=== PATIENT | female | born 1995 | race Caucasian/White ===

== ENCOUNTER → 2020-08-10 10:05 | Outpatient (BNVA) | payer MEDICAID, SELFPAY | PROVIDERS: PCP Student in an Organized Health Care Education/Training Program; Referring Provider Student in an Organized Health Care Education/Training Program; Visit Provider Advanced Practice Midwife | DX: Z76.89 Persons encountering health services in other specified circumstances (principal) ==

== ENCOUNTER 2020-08-11 15:27 | Outpatient (REF) | payer MEDICAID, SELFPAY ==
--- NOTE | 2020-08-11 15:58 | US_ITS ---
EXAMINATION: FIRST TRIMESTER OB ULTRASOUND CLINICAL INFORMATION: Threatened COMPARISON: Previous exams most recent 08/03/2020 TECHNIQUE: Transabdominal first trimester OB ultrasound FINDINGS: There is an intrauterine gestational sac. Sublimity-rump length measures 2.5 cm suggesting gestational age of 9 weeks 2 days with estimated date of delivery of 03/14/2021. This agrees with date from previous exam. heart rate is 160 bpm. There is a yolk sac. The maternal ovaries are not seen. There is no fluid in the pelvis. IMPRESSION: Single viable intrauterine . From today's measurements, gestational age is estimated at 9 weeks 2 days with estimated delivery of 03/14/2021.
== END 2020-08-11 15:28 | disposition home or self-care (01) ==
LOC: HO.US 15:27
PROVIDERS: PCP Student in an Organized Health Care Education/Training Program; Visit Provider Advanced Practice Midwife
DX: O20.9 Hemorrhage in early pregnancy, unspecified (principal); Z3A.00 Weeks of gestation of pregnancy not specified
CPT/HCPCS: 76801

== ENCOUNTER 2020-08-17 19:12 | Emergency (ER) | payer MEDICAID, SELFPAY ==
[2020-08-17 20:10] VITALS: BP 116/59; PULSE 73; RESP 16; TEMP 36; O2SAT 100; BMI 23.1
[2020-08-17 20:58] LABS: MANUAL DIFF FLAG NO
[2020-08-17 20:59] LABS: Basophils Percent Auto 0.4 % (0-2); Eosinophils Absolute Auto 0.1 X10*3/uL (0.0-0.4); Eosinophils Percent Auto 0.7 % (0-4); Hematocrit 36.6 % (37-47); Hemoglobin 12.8 g/dl (12.0-16.0); Imm Gran Abs Auto 0.02 X10*3/uL (0.00-0.03); Imm Gran Pct Auto 0.2 % (0.0-0.4); Lymphocytes Absolute Auto 2.2 X10*3/uL (1.2-4.9); Lymphocytes Percent Auto 21.2 % (20-40); Mean Corpuscular Hemoglobin 31.6 pg (27.0-33.0); Mean Corpuscular Volume 90.4 fL (80-98); Mean Platelet Volume 10.7 fL (9.4-12.3); Monocytes Absolute Auto 0.8 X10*3/uL (0.1-1.2); Monocytes Percent Auto 7.4 % (2-11); Neutrophils Absolute Auto 7.2 X10*3/uL (2.0-8.3); Neutrophils Percent Auto 70.1 % (45-73); Platelet Count 222 X10*3/uL (160-400); Red Blood Count 4.05 X10*6/uL (4.20-5.50); Red Cell Distribution Width 11.6 % (11.0-16.0); White Blood Count 10.2 X10*3/uL (4.8-10.8)
[2020-08-17 21:33] LABS: Alanine Aminotransferase 67 U/L (0-31); Albumin Level 4.6 g/dL (3.5-5.0); Alkaline Phosphatase 73 U/L (39-117); Anion Gap 14 (12-20); Aspartate Amino Transferase 42 U/L (5-31); Bilirubin Direct 0.8 mg/dL (0.0-0.5); Bilirubin Total 1.4 mg/dL (0.0-1.0); Blood Urea Nitrogen 8 mg/dL (9-16); Calcium 9.3 mg/dL (8.4-10.2); Carbon Dioxide 22 mmol/L (22-29); Chloride 100 mmol/L (96-108); Creatinine Clr Calc Pharmacy 110.5; Estimated Glomerular Filt Rate > 60; Glucose Random 86 mg/dL (60-115); Sodium 132 mmol/L (135-145); Total Protein 7.6 g/dL (6.5-8.0)
[2020-08-17 21:50] LABS: Lipase 93 U/L (8-78)
--- NOTE | 2020-08-17 22:28 | ED_ITS ---
HPI - Nausea/Vomiting/Diarrhea General Chief complaint: Nausea/Vomiting/Diarrhea Stated complaint: Vomiting Time Seen by Provider: 08/17/20 20:59 Source: patient Mode of arrival: ambulatory Limitations: no limitations History of Present Illness HPI Narrative: patient comes in to the emergency room complaining of vomiting. Patient is currently a at 10 weeks of gestational age by ultrasound. Patient states throughout her she has been having hyperemesis gravidarum, patient was discharged home with Zofran which is not helping her symptoms. Patient called her jr. systems administrator this morning, she was instructed to come to the emergency room for further evaluation. Patient denies any abdominal pain, no cramping, no vaginal discharge or fluid leakage. No diarrhea no fever. MD elicited complaint: nausea and vomiting Onset (ago): week(s) Associated nausea: Yes Associated abdominal pain: No Related Data Home Medications Medication Instructions Recorded Confirmed vitamin with calcium 1 tab PO DAILY 08/10/20 no.72-iron 27 mg-folic acid 1 mg tablet Previous Rx's Medication Instructions Recorded folic acid 800 mcg tablet 0.8 mg PO DAILY 30 Days #30 tab 08/10/20 ondansetron HCl 4 mg tablet 4 mg PO Q8-12H 14 Days #42 tab 08/10/20 metoclopramide HCl [Reglan] 5 mg PO DAILY PRN #14 tab 08/18/20 Allergies Allergy/AdvReac Type Severity Reaction Status Date / Time No Known Allergies Allergy Verified 08/10/20 10:17 Review of Systems Review of Systems: Constitutional : No Weight loss, No Fever, No Chills, No Night Sweats, No Fatigue, No Malaise ENT/Mouth : No Hearing loss, No Ear Pain, No Nasal Congestion, No Sinus Pain, No Hoarseness, No sore throat, No Rhinorrhea, No Swallowing Difficulty Eyes: No Eye Pain, No Swelling, No Redness, No Foreign Body, No Discharge, No Vision Changes Cardiovascular : No Chest Pain, No SOB, No Dyspnea on Exertion, No Orthopnea, No Edema, No Palpitations Respiratory : No Cough, No Sputum, No Wheezing, No Smoke Exposure, No Dyspnea Gastrointestinal : constant Nausea and vomiting, No Diarrhea, No Constipation, No abdominal Pain, No Hematochezia, No Melena Genitourinary : no irregular bleeding, No Dysuria, No Urinary Frequency, No Hematuria, No Urinary Incontinence, No Urgency, No Flank Pain, No Urinary Flow Changes, No Hesitancy Musculoskeletal : No joint pain, No Myalgias, No Joint Swelling Skin : No Skin Lesions, No rash Neuro : No Weakness, No Numbness, No Paresthesias, No Loss of Consciousness, No Dizziness, No Headache Psych : No Anxiety/Panic, No Depression, No SI/HI/AH/VH, No Social Issues, Heme/Lymph: No Bruising, No Bleeding,No Lymphadenopathy Endocrine : No Polyuria, No Polydipsia, No Temperature Intolerance Gastrointestinal: Gastrointestinal: Reports nausea PMFSH Past Medical History Surgical History Hx of wisdom tooth extraction : 1 Para: 0 Family History Family History Maternal Grandfather HTN (hypertension) CVD (cardiovascular disease) Maternal Grandmother Diabetes mellitus Social History Social History Alcohol intake: never Smoking Status: Never smoker Advance Directives: No Advance Directives Information Provided: No Gender identity: female Physical Exam Vital Signs: Vital Signs: Vital Signs Temp Pulse Resp BP Pulse Ox 08/17/20 20:10 96.8 F 73 16 116/59 L 100 Body Mass Index 23.1 Appearance: Alert. Oriented X3. No acute distress, well-appearing Eyes: Pupils equal, round and reactive to light. ENT: Pharynx normal. Neck: Normal inspection. Neck supple. No lymph nodes noted. No crepitus CVS: Normal heart rate and rhythm. Pulses normal. Normal S1 and S2 Respiratory: No respiratory distress. Breath sounds normal. No Wheezing. No rales Abdomen: Soft and nontender. No rigidity. No distention. good BS x4 Skin: Skin warm and dry. Normal skin color. Normal skin turgor. Extremities: No lower extremity edema. No lower extremity edema. No Lacerations. No Rash Neuro: Oriented X 3. No motor deficit. No sensory deficit. Moving all extermities. No slurred speech. Course Reevaluation(s) Reevaluation #1: patient feeling much better, no longer feeling nauseous or vomiting MDM - Nausea/Vomiting/Diarrhea MDM Narrative Medical decision making narrative: Patient did not want to wait for a repeat drawn for beta HCG, she did not want to wait for urine results either. Patient requesting to be discharged home. Patient states she feels much better. Since patient has not had any good results controlling the nausea and vomiting at home with Zofran, it will be changed to Phenergan which helped her here Medical Records Attestation: I reviewed the patient's medical records. Lab Data Attestation: I reviewed the patient's lab results. Result diagrams: 08/17/20 20:42 08/17/20 20:42 Labs: Lab Results 08/17/20 08/17/20 08/17/20 Range/Units 20:42 20:42 23:50 WBC 10.2 (4.8-10.8) X10*3/uL RBC 4.05 L (4.20-5.50) X10*6/uL Hgb 12.8 (12.0-16.0) g/dl Hct 36.6 L (37-47) % MCV 90.4 (80-98) fL MCH 31.6 (27.0-33.0) pg MCHC 35.0 (31.0-35.0) g/dl RDW 11.6 (11.0-16.0) % Plt Count 222 (160-400) X10*3/uL MPV 10.7 (9.4-12.3) fL Immature Gran % (Auto) 0.2 (0.0-0.4) % Neut % (Auto) 70.1 (45-73) % Lymph % (Auto) 21.2 (20-40) % [place] % (Auto) 7.4 (2-11) % Eos % (Auto) 0.7 (0-4) % Baso % (Auto) 0.4 (0-2) % Lymph # (Auto) 2.2 (1.2-4.9) X10*3/uL [place] # (Auto) 0.8 (0.1-1.2) X10*3/uL Eos # (Auto) 0.1 (0.0-0.4) X10*3/uL Baso # (Auto) 0.0 (0.0-0.2) X10*3/uL Abs Immat Gran (auto) 0.02 (0.00-0.03) X10*3/uL Absolute Neuts (auto) 7.2 (2.0-8.3) X10*3/uL Absolute Nucleated RBC 0.000 (0.0-0.012) X10*3/uL Nucleated RBC % (auto) 0.0 (0.0-0.2) /100WBC Sodium 132 L (135-145) mmol/L Potassium 4.0 (3.3-5.1) mmol/l Chloride 100 (96-108) mmol/L Carbon Dioxide 22 (22-29) mmol/L Anion Gap 14 (12-20) BUN 8 L (9-16) mg/dL Creatinine 0.66 (0.5-1.4) mg/dL Estim Creat Clear Calc 110.5 Estimated GFR > 60 Random Glucose 86 (60-115) mg/dL Calcium 9.3 (8.4-10.2) mg/dL Total Bilirubin 1.4 H (0.0-1.0) mg/dL Direct Bilirubin 0.8 H (0.0-0.5) mg/dL AST 42 H (5-31) U/L ALT 67 H (0-31) U/L Alkaline Phosphatase 73 (39-117) U/L Total Protein 7.6 (6.5-8.0) g/dL Albumin 4.6 (3.5-5.0) g/dL Lipase 93 H (8-78) U/L Urine Color DARK YELLOW Urine Appearance HAZY Urine pH 6.0 (5.0-8.0) Ur Specific [place] 1.025 (1.005-1.025) Urine Protein TRACE (NEG-TRACE) MG/DL Urine Glucose (UA) NEG (NEG) MG/DL Urine Ketones >=80 (NEG) MG/DL Urine Blood 3+ H (NEG) Urine Nitrite NEG (NEG) Ur Leukocyte Esterase 2+ H (NEG) Discharge Plan Discharge Clinical Impression: Nausea/vomiting in Patient Disposition: Home, Self-Care Instructions: Hyperemesis Gravidarum (ED) Additional Instructions: Please follow-up with your primary care physician tomorrow. If you have any worsening or new symptoms, please return to the emergency room or call 911 Prescriptions: New metoclopramide HCl [Reglan] 5 mg tablet 5 mg PO DAILY PRN (Reason: nausea and vomiting) Qty: 14 RF: 0 No Action Plus (calcium carb) 27 mg iron- 1 mg tablet 1 tab PO DAILY RF: 0 folic acid 800 mcg tablet 0.8 mg PO DAILY 30 Days Qty: 30 RF: 1 ondansetron HCl [Zofran] 4 mg tablet 4 mg PO Q8-12H 14 Days Qty: 42 RF: 0
[2020-08-17] MEDS: Metoclopramide HCl 10 MG/2 ML VIAL IVPUSH (22:57)
[2020-08-17] MEDS: 0.9 % Sodium Chloride 1,000 ML 999 ML IVCONT (22:57)
[2020-08-18 00:04] LABS: Appearance Urine HAZY; Color Urine DARK YELLOW; Glucose Urine UA NEG (NEG); Leukocyte Esterase Urine 2+ (NEG); Nitrite Urine NEG (NEG); Specific Gravity - Urine 1.025 (1.005-1.025); Urine Blood 3+ (NEG); Urine Ketones >=80 MG/DL (NEG); Urine Protein TRACE MG/DL (NEG-TRACE)
[2020-08-18 00:28] LABS: Bacteria Urine 1+ /LPF; Mucus Urine 2+ /LPF; Squamous Epithelial Cell Urine 3+ /LPF
== END 2020-08-18 00:36 | disposition home or self-care (01) ==
PROVIDERS: Emergency Provider Emergency Medicine; PCP Student in an Organized Health Care Education/Training Program
DX: O21.0 Mild hyperemesis gravidarum (principal); Z3A.10 10 weeks gestation of pregnancy
CPT/HCPCS: 36415; 80048; 80076; 81001; 83690; 84702; 85025; 87086; 96361; 96374; 99284; J2765

== ENCOUNTER 2022-12-02 20:34 | Emergency (ER) | payer MEDICAID, SELFPAY ==
--- NOTE | ~2022-12-02 | CT_ITS ---
EXAMINATION: CT ABDOMEN AND PELVIS WITH CONTRAST CLINICAL INFORMATION: Right lower quadrant pain. Question appendicitis. COMPARISON: None TECHNIQUE: Multidetector volumetric images were obtained from the superior aspect of the liver through the pubic symphysis following administration 85 mL of Omnipaque 350 intravenous contrast. Sagittal and coronal reformatted images were obtained on the technologist's workstation. Oral contrast: No This CT examination was performed using dose optimization techniques as appropriate, variously including the following: *Automated exposure control *Adjustment of mA and/or kV according to patient size (this includes techniques or standardized protocols for targeted exams where dose is matched to indication/reason for exam; i.e. extremities or head) *Use of iterative reconstruction technique DLP: 606 mGy-cm FINDINGS: LUNG BASES: The visualized lung bases are unremarkable. LIVER, GALLBLADDER, AND BILIARY TREE: The liver is normal in size, shape, and attenuation. No focal hepatic lesion or biliary ductal dilatation is present. The gallbladder is unremarkable with no evidence of radiopaque gallstones, gallbladder wall thickening, or obvious pericholecystic inflammatory changes. PANCREAS: Unremarkable. SPLEEN: Unremarkable. ADRENAL GLANDS: Unremarkable. KIDNEYS AND URETERS: Small 2-3 mm distal right ureteral stone at the level of the right UVJ or just passed and immediately adjacent to the right ureteral orifice. There is mild right hydroureteral nephrosis with mild right periureteral perinephric stranding and a minimally slightly right nephrogram. No additional radiodense urinary tract calculi. Normal left nephrogram. No left hydronephrosis. No renal lesions. No perinephric fluid collections. BLADDER: Unremarkable. GASTROINTESTINAL TRACT: No dilated bowel loops or bowel wall thickening. Normal appendix. No evidence of acute appendicitis. There is stippled appearing high-density material scattered within the lumen of the colon consistent with previously ingested high-density contents, nonspecific. No free air or ascites. ABDOMINAL WALL: No significant hernia is appreciated. LYMPH NODES: No lymphadenopathy. VASCULAR: Unremarkable. PELVIC VISCERA: Uterus is retroflexed. Gynecologic structures are unremarkable. No free pelvic fluid. OSSEOUS STRUCTURES: Unremarkable. CT/CT abdomen pelvis w IV con IMPRESSION: 1. 2-3 mm distal right ureteral stone at the level of the right UVJ or just passed and adjacent to the right ureteral orifice with mild right hydroureteronephrosis and a slightly delayed right nephrogram. 2. No additional radiodense urinary tract calculi. 3. Normal appendix. No evidence of acute appendicitis.
--- NOTE | ~2022-12-02 | US_ITS ---
EXAMINATION: US PELVIS COMPLETE CLINICAL INFORMATION: Right lower quadrant pain, question hemorrhagic cyst COMPARISON: Pelvic ultrasound 09/24/2019 TECHNIQUE: Transabdominal and endovaginal imaging was performed. FINDINGS: The uterus is of normal size and echogenicity measuring 6.8 x 3.5 x 4.4 cm. Uterus is retroverted in position. A regular homogeneous endometrium is identified measuring 1.0 cm. There is trace fluid in the endocervical canal. Both ovaries were identified with vascular flow present. The right measures 3.7 x 2.6 x 2.2 cm for a volume of 11.1 mL. The left measures 3.1 x 2.3 x 2.4 cm for a volume of 9.0 mL. Both ovaries demonstrate peripheralization of follicles with a central echogenic stroma on the left, with the right ovary measuring mildly enlarged. There is no pelvic free fluid. US/US pelvic and transvaginal IMPRESSION: Again seen are findings suggestive of polycystic ovarian syndrome. No acute finding to explain symptoms of pain. Trace fluid in the endocervical canal.
[2022-12-02 20:37] VITALS: BP 146/87; PULSE 73; RESP 18; TEMP 36.3; O2SAT 98; BMI 24.2
--- NOTE | 2022-12-02 20:40 | ED_ITS ---
HPI - General Adult General Chief complaint: Abdominal Pain <LASHA Woods - Last Filed: 12/02/22 20:41> Stated complaint: Abdominal Pain/ Leg numbness <LASHA Woods - Last Filed: 12/02/22 20:41> Time Seen by Provider: 12/02/22 20:51 <LASHA Woods - Last Filed: 12/02/22 20:41> Source: patient and family <Rob Barahona MD - Last Filed: 12/03/22 01:04> Mode of arrival: ambulatory <Rob Barahona MD - Last Filed: 12/03/22 01:04> Limitations: no limitations <Rob Barahona MD - Last Filed: 12/03/22 01:04> History of Present Illness HPI narrative: Patient with history of PCOS came here with sudden onset of pain in the right lower quadrant at 20:00 to right pain is sharp felt like she had to go to bathroom but could not no history of kidney stone reports diarrhea all week also she was taking antibiotic for sinus infection no fever no chills no urinary complaints no flank pain irregular. But she does not think she is <Rob Barahona MD - Last Filed: 12/03/22 01:04> Related Data Home medications: Home Medications Medication Instructions Recorded Confirmed vitamin with calcium 1 tab PO DAILY 08/10/20 no.72-iron 27 mg-folic acid 1 mg tablet ( Plus (calcium carbonate)) Previous Rx's Medication Instructions Recorded folic acid 800 mcg tablet 0.8 mg PO DAILY 30 days #30 tabs 08/10/20 metoclopramide HCl 5 mg tablet 5 mg PO DAILY PRN nausea and 08/18/20 (Reglan) vomiting #14 tabs ibuprofen 600 mg tablet 600 mg PO Q6H PRN fever or pain 12/03/22 #30 tabs ondansetron 4 mg disintegrating 4 mg PO Q6-8H PRN nausea and 12/03/22 tablet vomiting #10 tabs oxycodone 5 mg tablet 5 mg PO Q6H PRN pain #20 tabs 12/03/22 tamsulosin 0.4 mg capsule (Flomax) 0.4 mg PO BEDTIME #10 caps 12/03/22 <LASHA Woods - Last Filed: 12/02/22 20:41> Allergies/adverse reactions: Allergies Allergy/AdvReac Type Severity Reaction Status Date / Time No Known Allergies Allergy Verified 08/10/20 10:17 <LASHA Woods - Last Filed: 12/02/22 20:41> Review of Systems Review of Systems: Yes all other systems are reviewed and are negative <Rob Barahona MD - Last Filed: 12/03/22 01:04> [facility] Past Medical History Surgical History: Surgical History Hx of wisdom tooth extraction <LASHA Woods - Last Filed: 12/02/22 20:41> Family History Family History: Family History Maternal Grandfather HTN (hypertension) CVD (cardiovascular disease) Maternal Grandmother Diabetes mellitus <LASHA Woods - Last Filed: 12/02/22 20:41> Social History Social History: Social History Alcohol intake: never Advance Directives: No Advance Directives Information Provided: No Gender identity: Female <LASHA Woods - Last Filed: 12/02/22 20:41> Physical Exam ED Vital Signs: Vital Signs - 24 hr 12/02/22 20:37 12/02/22 21:05 12/02/22 22:17 Temperature 97.4 F Pulse Rate 73 76 79 Respiratory Rate 18 22 H 17 Blood Pressure 146/87 H 143/70 H 140/76 H Pulse Oximetry 98 94 95 Oxygen Delivery Method Room Air Room Air Room Air 12/03/22 00:38 Temperature Pulse Rate 74 Respiratory Rate 16 Blood Pressure 142/78 H Pulse Oximetry 97 Oxygen Delivery Method Room Air BMI result Body Mass Index 24.2 <LASHA Woods - Last Filed: 12/02/22 20:41> Vital Signs - 24 hr 12/02/22 20:37 12/02/22 21:05 12/02/22 22:17 Temperature 97.4 F Pulse Rate 73 76 79 Respiratory Rate 18 22 H 17 Blood Pressure 146/87 H 143/70 H 140/76 H Pulse Oximetry 98 94 95 Oxygen Delivery Method Room Air Room Air Room Air 12/03/22 00:38 Temperature Pulse Rate 74 Respiratory Rate 16 Blood Pressure 142/78 H Pulse Oximetry 97 Oxygen Delivery Method Room Air BMI result Body Mass Index 24.2 <Rob Barahona MD - Last Filed: 12/03/22 01:04> Appearance: Alert. Oriented X3. In moderate distress. Eyes: PERRLA, No Nystagmus ENT: Pharynx normal. Oral Mucosa moist Neck: Normal inspection. Neck supple. CVS: Normal heart rate and rhythm. Pulses normal. Respiratory: No respiratory distress. Equal air entry bilateral, no w heezing/rales/rhonchi Abdomen: Soft, right lower quadrant tenderness with guarding Bowel sounds are present, no mass palpable, no CVA tenderness Skin: Skin warm and dry. Normal skin color. Normal skin turgor. Extremities: No lower extremity edema. No calf tenderness Neuro: Oriented X 3. No motor deficit. <Rob Barahona MD - Last Filed: 12/03/22 01:04> Course Course Course Narrative: RME performed by Yuko Walker PA-C. Patient is a 27 year old female presenting to the emergency department with right lower quadrant abdominal pain. Labs and imaging orders placed. <LASHA Woods - Last Filed: 12/02/22 20:41> Medications Administered Discontinued Medications Generic Name Dose Route Start Last Admin Trade Name Freq PRN Reason Stop Dose Admin Sodium Chloride 1,000 mls @ 999 mls/hr 12/02/22 20:57 12/02/22 22:04 Ns IV 12/02/22 21:57 Infused .Q1H1M ONE Infusion Iohexol 100 ml 12/02/22 22:35 12/02/22 22:35 Iohexol 350 Mg/Ml 100 Ml Infus..Btl IV 12/02/22 22:36 85 ml ONCE ONE Administration Ketorolac Tromethamine 30 mg 12/02/22 20:57 12/02/22 21:00 Ketorolac Tromethamine 30 Mg/Ml Vial IVPUSH 12/02/22 20:58 30 mg ONCE ONE Administration Morphine Sulfate 2 mg 12/02/22 22:53 12/02/22 23:05 Morphine Sulfate 2 Mg/Ml Cartridge IVPUSH 12/02/22 22:54 2 mg ONCE ONE Administration Protocol Morphine Sulfate 4 mg 12/03/22 00:18 12/03/22 00:25 Morphine Sulfate 4 Mg/Ml Cartridge IVPUSH 12/03/22 00:19 4 mg ONCE ONE Administration Protocol Ondansetron HCl 4 mg 12/02/22 22:53 12/02/22 23:05 Ondansetron Hcl 4 Mg/2 Ml Vial IVPUSH 12/02/22 22:54 4 mg ONCE ONE Administration Tamsulosin HCl 0.4 mg 12/02/22 23:59 12/03/22 00:25 Tamsulosin Hcl 0.4 Mg Capsule PO 12/03/22 00:00 0.4 mg ONCE ONE Administration <LASHA Woods - Last Filed: 12/02/22 20:41> Medications Administered Discontinued Medications Generic Name Dose Route Start Last Admin Trade Name Freq PRN Reason Stop Dose Admin Sodium Chloride 1,000 mls @ 999 mls/hr 12/02/22 20:57 12/02/22 22:04 Ns IV 12/02/22 21:57 Infused .Q1H1M ONE Infusion Iohexol 100 ml 12/02/22 22:35 12/02/22 22:35 Iohexol 350 Mg/Ml 100 Ml Infus..Btl IV 12/02/22 22:36 85 ml ONCE ONE Administration Ketorolac Tromethamine 30 mg 12/02/22 20:57 12/02/22 21:00 Ketorolac Tromethamine 30 Mg/Ml Vial IVPUSH 12/02/22 20:58 30 mg ONCE ONE Administration Morphine Sulfate 2 mg 12/02/22 22:53 12/02/22 23:05 Morphine Sulfate 2 Mg/Ml Cartridge IVPUSH 12/02/22 22:54 2 mg ONCE ONE Administration Protocol Morphine Sulfate 4 mg 12/03/22 00:18 12/03/22 00:25 Morphine Sulfate 4 Mg/Ml Cartridge IVPUSH 12/03/22 00:19 4 mg ONCE ONE Administration Protocol Ondansetron HCl 4 mg 12/02/22 22:53 12/02/22 23:05 Ondansetron Hcl 4 Mg/2 Ml Vial IVPUSH 12/02/22 22:54 4 mg ONCE ONE Administration Tamsulosin HCl 0.4 mg 12/02/22 23:59 12/03/22 00:25 Tamsulosin Hcl 0.4 Mg Capsule PO 12/03/22 00:00 0.4 mg ONCE ONE Administration <Rob Barahona MD - Last Filed: 12/03/22 01:04> Medical Decision Making Medical Decision Making [facility] Narrative: Patient with acute onset of right-sided pain workup showed PCOS and 3 mm obstructive UVJ stone likely the cause for the pain. Patient has no history of kidney stone in the past patient is on Augmentin for dental infection for last 1 week urine was leuko stress positive but no bacteria patient failed pain improved after analgesics and IV fluids feeling much better now will discharge patient home on pain management advised to follow-up with urologist for further evaluation <Rob Barahona MD - Last Filed: 12/03/22 01:04> Lab Data [facility] Lab Attestation statement: I reviewed the patient's lab results. <Rob Barahona MD - Last Filed: 12/03/22 01:04> Result Diagrams: 12/02/22 20:53 12/02/22 20:53 <LASHA Woods - Last Filed: 12/02/22 20:41> Labs: Lab Results 12/02/22 12/02/22 12/02/22 Range/Units 20:53 20:53 22:44 WBC 10.7 (4.8-10.8) X10*3/uL RBC 4.57 (4.20-5.50) X10*6/uL Hgb 13.9 (12.0-16.0) g/dl Hct 40.3 (37.0-47.0) % MCV 88.2 (80.0-98.0) fL MCH 30.4 (27.0-33.0) pg MCHC 34.5 (31.0-35.0) g/dl RDW 11.9 (11.0-16.0) % Plt Count 303 (160-400) X10*3/uL MPV 9.8 (9.4-12.3) fL Immature Gran % (Auto) 0.3 (0.0-0.4) % Neut % (Auto) 50.8 (45-73) % Lymph % (Auto) 39.9 (20-40) % [place] % (Auto) 7.5 (2-11) % Eos % (Auto) 1.0 (0-4) % Baso % (Auto) 0.5 (0-2) % Lymph # (Auto) 4.3 (1.2-4.9) X10*3/uL [place] # (Auto) 0.8 (0.1-1.2) X10*3/uL Eos # (Auto) 0.1 (0.0-0.4) X10*3/uL Baso # (Auto) 0.1 (0.0-0.2) X10*3/uL Abs Immat Gran (auto) 0.03 (0.00-0.03) X10*3/uL Absolute Neuts (auto) 5.5 (2.0-8.3) x10*3/uL Absolute Nucleated RBC 0.000 (0.0-0.012) X10*3/uL Nucleated RBC % (auto) 0.0 (0.0-0.2) /100WBC Sodium 138 (135-145) mmol/L Potassium 4.0 (3.3-5.1) mmol/L Chloride 102 (96-108) mmol/L Carbon Dioxide 26 (22-29) mmol/L Anion Gap 14 (12-20) BUN 17 H (9-16) mg/dL Creatinine 1.17 (0.5-1.4) mg/dL Estim Creat Clear Calc 66.4 Estimated GFR 55 Random Glucose 98 (60-115) mg/dL Calcium 9.6 (8.4-10.2) mg/dL Magnesium 2.1 (1.6-2.6) mg/dL Total Bilirubin 0.3 (0.0-1.0) mg/dL AST 32 H (5-31) U/L ALT 45 H (0-31) U/L Alkaline Phosphatase 125 H (39-117) U/L Total Protein 8.1 H (6.5-8.0) g/dL Albumin 4.9 (3.5-5.0) g/dL Beta HCG, Quant < 2 mIU/mL Urine Color Yellow Urine Appearance Cloudy Urine pH 6.0 (5.0-9.0) Ur Specific [place] >= 1.030 H (1.005-1.025) Urine Protein Negative (Neg-Trace) mg/dL Urine Glucose (UA) Negative (Negative) mg/dL Urine Ketones Trace (Negative) mg/dL Urine Blood Small (1+) H (Negative) Urine Nitrite Negative (Negative) Ur Leukocyte Esterase Moderate (2+) H (Negative) Urine RBC 3-5 H (0-2) /HPF Urine WBC 0-5 (0-5) /HPF Ur Squamous Epith Cells 3-5 (0-2) /HPF Urine Bacteria None Seen (None Seen) Hyaline Casts 0-2 (0-2) /LPF <LASHA Woods - Last Filed: 12/02/22 20:41> Lab Results 12/02/22 12/02/22 12/02/22 Range/Units 20:53 20:53 22:44 WBC 10.7 (4.8-10.8) X10*3/uL RBC 4.57 (4.20-5.50) X10*6/uL Hgb 13.9 (12.0-16.0) g/dl Hct 40.3 (37.0-47.0) % MCV 88.2 (80.0-98.0) fL MCH 30.4 (27.0-33.0) pg MCHC 34.5 (31.0-35.0) g/dl RDW 11.9 (11.0-16.0) % Plt Count 303 (160-400) X10*3/uL MPV 9.8 (9.4-12.3) fL Immature Gran % (Auto) 0.3 (0.0-0.4) % Neut % (Auto) 50.8 (45-73) % Lymph % (Auto) 39.9 (20-40) % [place] % (Auto) 7.5 (2-11) % Eos % (Auto) 1.0 (0-4) % Baso % (Auto) 0.5 (0-2) % Lymph # (Auto) 4.3 (1.2-4.9) X10*3/uL [place] # (Auto) 0.8 (0.1-1.2) X10*3/uL Eos # (Auto) 0.1 (0.0-0.4) X10*3/uL Baso # (Auto) 0.1 (0.0-0.2) X10*3/uL Abs Immat Gran (auto) 0.03 (0.00-0.03) X10*3/uL Absolute Neuts (auto) 5.5 (2.0-8.3) x10*3/uL Absolute Nucleated RBC 0.000 (0.0-0.012) X10*3/uL Nucleated RBC % (auto) 0.0 (0.0-0.2) /100WBC Sodium 138 (135-145) mmol/L Potassium 4.0 (3.3-5.1) mmol/L Chloride 102 (96-108) mmol/L Carbon Dioxide 26 (22-29) mmol/L Anion Gap 14 (12-20) BUN 17 H (9-16) mg/dL Creatinine 1.17 (0.5-1.4) mg/dL Estim Creat Clear Calc 66.4 Estimated GFR 55 Random Glucose 98 (60-115) mg/dL Calcium 9.6 (8.4-10.2) mg/dL Magnesium 2.1 (1.6-2.6) mg/dL Total Bilirubin 0.3 (0.0-1.0) mg/dL AST 32 H (5-31) U/L ALT 45 H (0-31) U/L Alkaline Phosphatase 125 H (39-117) U/L Total Protein 8.1 H (6.5-8.0) g/dL Albumin 4.9 (3.5-5.0) g/dL Beta HCG, Quant < 2 mIU/mL Urine Color Yellow Urine Appearance Cloudy Urine pH 6.0 (5.0-9.0) Ur Specific [place] >= 1.030 H (1.005-1.025) Urine Protein Negative (Neg-Trace) mg/dL Urine Glucose (UA) Negative (Negative) mg/dL Urine Ketones Trace (Negative) mg/dL Urine Blood Small (1+) H (Negative) Urine Nitrite Negative (Negative) Ur Leukocyte Esterase Moderate (2+) H (Negative) Urine RBC 3-5 H (0-2) /HPF Urine WBC 0-5 (0-5) /HPF Ur Squamous Epith Cells 3-5 (0-2) /HPF Urine Bacteria None Seen (None Seen) Hyaline Casts 0-2 (0-2) /LPF <Rob Barahona MD - Last Filed: 12/03/22 01:04> Discharge Plan Discharge Clinical Impression: Calculus of kidney <LASHA Woods - Last Filed: 12/02/22 20:41> Patient Disposition: Home, Self-Care <LASHA Woods - Last Filed: 12/02/22 20:41> Additional Instructions: Drink plenty of fluids Pain medication as prescribed Take Flomax to keep the tube open Follow urologist Avoid food containing oxalate <LASHA Woods - Last Filed: 12/02/22 20:41> Prescriptions: New oxycodone 5 mg tablet 5 mg PO Q6H PRN (Reason: pain) Qty: 20 0RF Rx Instructions: Partial Fill upon patient request. ibuprofen 600 mg tablet 600 mg PO Q6H PRN (Reason: fever or pain) Qty: 30 0RF ondansetron 4 mg tablet,disintegrating 4 mg PO Q6-8H PRN (Reason: nausea and vomiting) Qty: 10 0RF tamsulosin [Flomax] 0.4 mg capsule 0.4 mg PO BEDTIME Qty: 10 0RF No Action metoclopramide HCl [Reglan] 5 mg tablet 5 mg PO DAILY PRN (Reason: nausea and vomiting) Qty: 14 0RF Plus (calcium carb) 27 mg iron- 1 mg tablet 1 tab PO DAILY folic acid 800 mcg tablet 0.8 mg PO DAILY 30 Days Qty: 30 1RF <LASHA Woods - Last Filed: 12/02/22 20:41> Referrals: Brennan Cobb MD [Physician] - 3 days <LASHA Woods - Last Filed: 12/02/22 20:41> Stand Alone Forms: Work/School Release <LASHA Woods - Last Filed: 12/02/22 20:41> Interventions: ED Discharge Assessment Last Done: 12/03/22 00:53 <LASHA Woods - Last Filed: 12/02/22 20:41> Discharge Date/Time: 12/03/22 00:55 <LASHA Woods - Last Filed: 12/02/22 20:41>
[2022-12-02 20:57] LABS: MANUAL DIFF FLAG NO
[2022-12-02 21:00] LABS: Basophils Absolute Auto 0.1 X10*3/uL (0.0-0.2); Basophils Percent Auto 0.5 % (0-2); Eosinophils Absolute Auto 0.1 X10*3/uL (0.0-0.4); Hematocrit 40.3 % (37.0-47.0); Hemoglobin 13.9 g/dl (12.0-16.0); Imm Gran Abs Auto 0.03 X10*3/uL (0.00-0.03); Imm Gran Pct Auto 0.3 % (0.0-0.4); Lymphocytes Absolute Auto 4.3 X10*3/uL (1.2-4.9); Lymphocytes Percent Auto 39.9 % (20-40); Mean Corpuscular HGB Conc 34.5 g/dl (31.0-35.0); Mean Corpuscular Hemoglobin 30.4 pg (27.0-33.0); Mean Corpuscular Volume 88.2 fL (80.0-98.0); Mean Platelet Volume 9.8 fL (9.4-12.3); Monocytes Absolute Auto 0.8 X10*3/uL (0.1-1.2); Monocytes Percent Auto 7.5 % (2-11); Neutrophils Absolute Auto 5.5 x10*3/uL (2.0-8.3); Neutrophils Percent Auto 50.8 % (45-73); Platelet Count 303 X10*3/uL (160-400); Red Blood Count 4.57 X10*6/uL (4.20-5.50); Red Cell Distribution Width 11.9 % (11.0-16.0); White Blood Count 10.7 X10*3/uL (4.8-10.8)
[2022-12-02] MEDS: Ketorolac Tromethamine 30 MG/ML VIAL IVPUSH (21:00)
[2022-12-02] MEDS: 0.9 % Sodium Chloride 1,000 ML 999 ML IV (21:04)
[2022-12-02 21:05] VITALS: BP 143/70; PULSE 76; RESP 22; O2SAT 94
[2022-12-02 21:26] LABS: Alanine Aminotransferase 45 U/L (0-31); Albumin Level 4.9 g/dL (3.5-5.0); Alkaline Phosphatase 125 U/L (39-117); Anion Gap 14 (12-20); Aspartate Amino Transferase 32 U/L (5-31); Bilirubin Total 0.3 mg/dL (0.0-1.0); Blood Urea Nitrogen 17 mg/dL (9-16); Calcium 9.6 mg/dL (8.4-10.2); Carbon Dioxide 26 mmol/L (22-29); Chloride 102 mmol/L (96-108); Creatinine Clr Calc Pharmacy 66.4; Estimated Glomerular Filt Rate 55; Glucose Random 98 mg/dL (60-115); Magnesium 2.1 mg/dL (1.6-2.6); Sodium 138 mmol/L (135-145); Total Protein 8.1 g/dL (6.5-8.0)
[2022-12-02 21:28] LABS: HCG Quantitative < 2 mIU/mL
[2022-12-02 22:17] VITALS: BP 140/76; PULSE 79; RESP 17; O2SAT 95
--- NOTE | 2022-12-02 22:26 | PC.NURSE ---
pt resting on stretcher at this time, reports decreased but not totally eliminated pain. Pt is in CT at this time
[2022-12-02] MEDS: iohexoL 350 MG/ML 100 ML INFUS..BTL IV (22:35)
[2022-12-02 22:49] LABS: Appearance Urine Cloudy; Color Urine Yellow; Glucose Urine UA Negative (Negative); Leukocyte Esterase Urine Moderate (2+) (Negative); Nitrite Urine Negative (Negative); Specific Gravity - Urine >= 1.030 (1.005-1.025); UMIC TRIGGER UACC YES; Urine Blood Small (1+) (Negative); Urine Ketones Trace mg/dL (Negative); Urine Protein Negative (Neg-Trace)
[2022-12-02 23:01] LABS: Bacteria Urine None Seen (None Seen); Hyaline Casts Urine 0-2 /LPF (0-2); WBC Urine 0-5 /HPF (0-5)
[2022-12-02] MEDS: ondansetron HCL 4 MG/2 ML VIAL IVPUSH (23:05)
[2022-12-02] MEDS: Morphine Sulfate 2 MG/ML CARTRIDGE IVPUSH (23:05)
[2022-12-03] MEDS: Tamsulosin HCL 0.4 MG CAPSULE PO (00:25)
[2022-12-03] MEDS: Morphine Sulfate 4 MG/ML CARTRIDGE IVPUSH (00:25)
[2022-12-03 00:38] VITALS: BP 142/78; PULSE 74; RESP 16; O2SAT 97
== END 2022-12-03 00:55 | disposition home or self-care (01) ==
PROVIDERS: Physician Assistant Medical; Emergency Provider Internal Medicine; PCP Student in an Organized Health Care Education/Training Program
DX: N13.2 Hydronephrosis with renal and ureteral calculous obstruction (principal)
CPT/HCPCS: 36415; 74177; 76830; 76856; 80053; 81001; 83735; 84702; 85025; 96361; 96374; 96375; 96376; 99284; J1885; J2270; J2405; Q9967

== ENCOUNTER → 2023-01-01 09:44 | Outpatient (BNVA) | payer MEDICAID, SELFPAY | PROVIDERS: PCP General Practice; Visit Provider Nurse Practitioner Family | DX: N20.1 Calculus of ureter (principal) | CPT/HCPCS: 99202 ==

== ENCOUNTER 2023-01-22 09:07 | Outpatient (REF) | payer MEDICAID, SELFPAY ==
--- NOTE | ~2023-01-22 | US_ITS ---
EXAMINATION: US RETROPERITONEAL LIMITED (RENAL ONLY) CLINICAL INFORMATION: Calculus of kidney. COMPARISON: CT abdomen and pelvis 12/02/2022. TECHNIQUE: Real-time imaging of the kidneys. FINDINGS: RIGHT KIDNEY: 10.5 x 3.5 x 5.0 cm (SAG x AP x TRV). The kidney is normal in size, contour, and echogenicity. Renal cortical thickness is normal. No focal parenchymal lesions or hydronephrosis. There is an echogenic stone without caliectasis in upper midpole measuring 0.2 x 0.2 x 0.2 cm. LEFT KIDNEY: 10.4 x 4.8 x 5.7 cm (SAG x AP x TRV). The kidney is normal in size, contour, and echogenicity. Renal cortical thickness is normal. No calculi or focal parenchymal lesions. No hydronephrosis. US/US renal BI IMPRESSION: 1. Nonobstructive echogenic stone upper midpole right kidney. 2. The left kidney is unremarkable.
== END 2023-01-22 09:08 | disposition home or self-care (01) ==
LOC: HO.US 09:07
PROVIDERS: PCP Student in an Organized Health Care Education/Training Program; Visit Provider Nurse Practitioner Family
DX: N20.0 Calculus of kidney (principal)
CPT/HCPCS: 76775

== ENCOUNTER → 2023-01-29 09:26 | Outpatient (BNVA) | payer MEDICAID, SELFPAY | PROVIDERS: PCP Student in an Organized Health Care Education/Training Program; Visit Provider Nurse Practitioner Family | DX: N20.0 Calculus of kidney (principal) | CPT/HCPCS: 99202 ==

== ENCOUNTER 2024-01-14 11:12 | Outpatient (REF) | payer OTHER, SELFPAY ==
[2024-01-15 05:27] LABS: ~HepC Num1 0.11 S/CO (0.00-0.79); ~Hepatitis C Antibody Nonreactive (Nonreactive)
[2024-01-16 18:14] LABS: HIV RNA PCR Qn Copies Not Detected Copies/mL; HIV RNA PCR Qn Log Copies Not Detected Log cps/mL
== END 2024-01-14 11:13 | disposition home or self-care (01) ==
LOC: HO.CHCLDS 11:12
PROVIDERS: Visit Provider Student in an Organized Health Care Education/Training Program
DX: Z00.00 Encounter for general adult medical examination without abnormal findings (principal); Z11.4 Encounter for screening for human immunodeficiency virus [HIV]
CPT/HCPCS: 36415; 86803; 87536; 87900

== ENCOUNTER 2024-01-23 08:29 | Emergency (ER) | payer OTHER, SELFPAY ==
--- NOTE | ~2024-01-23 | CT_ITS ---
EXAMINATION: CT HEAD WITHOUT CONTRAST CLINICAL INFORMATION: Numbness and tingling COMPARISON: None available. TECHNIQUE: Contiguous axial imaging was performed from the skull base to vertex without intravenous administration of contrast. This CT examination was performed using dose optimization techniques as appropriate, variously including the following: *Automated exposure control *Adjustment of mA and/or kV according to patient size (this includes techniques or standardized protocols for targeted exams where dose is matched to indication/reason for exam; i.e. extremities or head) *Use of iterative reconstruction technique DLP: 587 mGy-cm FINDINGS: There is no evidence of acute intracranial hemorrhage or territorial infarction. No abnormal mass effect or midline shift is seen. Darling to white matter differentiation is well preserved. No extra-axial fluid collections are identified. The ventricles are normal in size. There is no abnormal attenuation within the brain parenchyma. The osseous structures and soft tissues are normal. The mastoid air cells and visualized portions of the paranasal sinuses are well aerated. CT/CT head/brain wo IV con IMPRESSION: No acute intracranial pathology.
[2024-01-23 08:35] VITALS: BP 117/66; PULSE 78; RESP 18; TEMP 36.6; O2SAT 96; BMI 25.2
[2024-01-23 09:01] LABS: MANUAL DIFF FLAG NO
[2024-01-23 09:02] LABS: Basophils Absolute Auto 0.1 X10*3/uL (0.0-0.2); Basophils Percent Auto 0.5 % (0-2); Eosinophils Absolute Auto 0.3 X10*3/uL (0.0-0.4); Eosinophils Percent Auto 2.8 % (0-4); Imm Gran Abs Auto 0.03 X10*3/uL (0.00-0.03); Imm Gran Pct Auto 0.3 % (0.0-0.4); Lymphocytes Absolute Auto 4.2 X10*3/uL (1.2-4.9); Lymphocytes Percent Auto 41.1 % (20-40); Mean Corpuscular Hemoglobin 31.1 pg (27.0-33.0); Mean Corpuscular Volume 88.9 fL (80.0-98.0); Mean Platelet Volume 9.9 fL (9.4-12.3); Monocytes Absolute Auto 0.6 X10*3/uL (0.1-1.2); Monocytes Percent Auto 6.2 % (2-11); Neutrophils Absolute Auto 5.1 x10*3/uL (2.0-8.3); Neutrophils Percent Auto 49.1 % (45-73); Platelet Count 265 X10*3/uL (160-400); Red Cell Distribution Width 11.9 % (11.0-16.0); White Blood Count 10.3 X10*3/uL (4.8-10.8)
[2024-01-23 09:21] LABS: Alanine Aminotransferase 15 U/L (0-31); Albumin Level 4.5 g/dL (3.5-5.0); Alkaline Phosphatase 93 U/L (39-117); Anion Gap 10 (12-20); Aspartate Amino Transferase 17 U/L (5-31); Bilirubin Direct 0.2 mg/dL (0.0-0.5); Bilirubin Total 0.3 mg/dL (0.0-1.0); Blood Urea Nitrogen 21 mg/dL (9-16); Calcium 9.5 mg/dL (8.4-10.2); Carbon Dioxide 28 mmol/L (22-29); Chloride 104 mmol/L (96-108); Creatinine Clr Calc Pharmacy 85.9; Estimated Glomerular Filt Rate > 60; Glucose Random 98 mg/dL (60-115); Lipase 39 U/L (8-78); Potassium 3.6 mmol/L (3.3-5.1); Sodium 138 mmol/L (135-145)
[2024-01-23 10:41] LABS: HCG Quantitative < 2 mIU/mL
[2024-01-23 11:36] VITALS: BP 110/67; PULSE 71; RESP 18; TEMP 36.7; O2SAT 98
--- NOTE | 2024-01-23 11:45 | ED.GENADULT ---
HPI - General Adult General Chief complaint: General Medical Stated complaint: Sent by PCP - body tremors Time Seen by Provider: 01/23/24 13:19 Source: patient Mode of arrival: ambulatory Limitations: no limitations History of Present Illness HPI narrative: 28 yo female due to recent anxiety and depression was started on zoloft 25mg and trazodone QHS by her provider was only taking it for 3 to 4 days but felt nauseated, weird and had tremors - not external internal. She stopped taking them Sunday but still feels internal tremors. She was sent by the PCP. She is not taking the meds any longer and doesn't plan to MD complaint: internal tremors Onset (ago): day(s) (5) Location: chest, upper extremity and lower extremity Radiation: non-radiation Severity: moderate Quality: other (tremors internally ) Relieving factors: none Exacerbating factors: other (blames medications) Associated symptoms: denies other symptoms Treatments prior to arrival: none Related Data Home Medications Medication Instructions Recorded Confirmed hydroxyzine HCl 50 mg tablet 50 mg PO DAILY 12/29/22 01/29/23 meclizine 25 mg tablet 25 mg PO DAILY PRN 12/29/22 01/29/23 omeprazole 20 mg capsule,delayed 20 mg PO DAILY 12/29/22 01/29/23 release Previous Rx's Medication Instructions Recorded pyridoxine (vitamin B6) 100 mg 100 mg PO DAILY 90 days #90 tabs 01/01/23 tablet lorazepam 1 mg tablet 1 mg PO BID PRN anxiety #6 tabs 01/23/24 Allergies Allergy/AdvReac Type Severity Reaction Status Date / Time No Known Allergies Allergy Verified 01/23/24 08:35 Review of Systems Review of Systems: Constitutional : No Fever, No Chills, No Fatigue ENT/Mouth : No sore throat, No Rhinorrhea Eyes: No Eye Pain, No Swelling, No Redness Cardiovascular : No Chest Pain, No SOB, No Dyspnea on Exertion Respiratory : No Cough, No Sputum Gastrointestinal : No Nausea, No Vomiting, No Diarrhea, No abdominal Pain Genitourinary : No Dysuria, No Urinary Frequency, No Hematuria, Musculoskeletal : No joint pain, No Myalgias, No Joint Swelling Skin : No Skin Lesions, No rash Neuro : No Weakness, No Numbness, No Dizziness, no Headache Psych : No Anxiety/Panic, No Depression Heme/Lymph: No Bruising, No Bleeding,No Lymphadenopathy Endocrine : No Polyuria, No Polydipsia All other systems reviewed and are negative [facility] Past Medical History Attestation statement: The following information was validated with the patient. Source: old records reviewed Medical History Depression Surgical History Hx of wisdom tooth extraction Family History Family History Maternal Grandfather HTN (hypertension) CVD (cardiovascular disease) Maternal Grandmother Diabetes mellitus Social History Social History (Updated 01/23/24 @ 13:37 by Mavis Florentino DO) Alcohol intake: never Patient Tobacco Use Status: Never used Tobacco Advance Directives: No Advance Directives Information Provided: No Gender identity: Female Physical Exam ED Vital Signs: Vital Signs - 24 hr 01/23/24 08:35 01/23/24 11:36 01/23/24 13:38 Temperature 97.9 F 98.1 F 98.1 F Pulse Rate 78 71 72 Respiratory Rate 18 18 20 Blood Pressure 117/66 110/67 112/89 Pulse Oximetry 96 98 98 Oxygen Delivery Method Room Air Room Air Room Air BMI result Body Mass Index 25.2 Appearance: Alert. Oriented X3. No acute distress. Eyes: Pupils equal, round and reactive to light. 3mm ERRL ENT: Pharynx normal. Neck: Normal inspection. Neck supple. CVS: Normal heart rate and rhythm. Pulses normal. Respiratory: No respiratory distress. Breath sounds normal. Abdomen: Soft and nontender. Skin: Skin warm and dry. Normal skin color. Normal skin turgor. Extremities: No lower extremity edema. No calf ttp Neuro: Oriented X 3. No motor deficit. No sensory deficit. normal reflexes, no tremors noted, no clonus Course Course Course Narrative: This is an RME: Additional HPI, ROS, PE not included below will be deferred to primary provider. This is a [id number]-female presenting to the ER with c/o body tremors, muscle stiffness after starting on zoloft and trazodone. VSS, no tremor seen in triage. She is neurologically intact. Plan: Labs, ekg, further ER evaluation needed. Medical Decision Making Medical Decision Making [facility] Narrative: 28 yo female with PMH of depression just put on zoloft and trazodone only lasted 4 days but felt weird on it still has internal tremors she is not taking the medications anymore at this time will need basic labs, she has no estefani criteria doubt serotonin syndrome will start on PRN ativan for 3 days and discussed she needs to see PCP. Differential Diagnosis Differential Diagnoses: The differential diagnosis associated with the presentation includes anxiety related to medication, doubt serotonin syndrome - no signs of hyperreflexia no clonus no autonomic issues Admission/Observation Consideration of admission/observation: Escalation of care including admission/observation considered work up negative no signs of serotonin syndrome she is stable for DC Lab Data [facility] Lab Attestation statement: I reviewed the patient's lab results. 01/23/24 08:48 01/23/24 08:48 Labs: Lab Results 01/23/24 01/23/24 Range/Units 08:48 11:24 WBC 10.3 (4.8-10.8) X10*3/uL RBC 4.50 (4.20-5.50) X10*6/uL Hgb 14.0 (12.0-16.0) g/dl Hct 40.0 (37.0-47.0) % MCV 88.9 (80.0-98.0) fL MCH 31.1 (27.0-33.0) pg MCHC 35.0 (31.0-35.0) g/dl RDW 11.9 (11.0-16.0) % Plt Count 265 (160-400) X10*3/uL MPV 9.9 (9.4-12.3) fL Immature Gran % (Auto) 0.3 (0.0-0.4) % Neut % (Auto) 49.1 (45-73) % Lymph % (Auto) 41.1 H (20-40) % [place] % (Auto) 6.2 (2-11) % Eos % (Auto) 2.8 (0-4) % Baso % (Auto) 0.5 (0-2) % Lymph # (Auto) 4.2 (1.2-4.9) X10*3/uL [place] # (Auto) 0.6 (0.1-1.2) X10*3/uL Eos # (Auto) 0.3 (0.0-0.4) X10*3/uL Baso # (Auto) 0.1 (0.0-0.2) X10*3/uL Abs Immat Gran (auto) 0.03 (0.00-0.03) X10*3/uL Absolute Neuts (auto) 5.1 (2.0-8.3) x10*3/uL Absolute Nucleated RBC 0.000 (0.0-0.012) X10*3/uL Nucleated RBC % (auto) 0.0 (0.0-0.2) /100WBC Sodium 138 (135-145) mmol/L Potassium 3.6 (3.3-5.1) mmol/L Chloride 104 (96-108) mmol/L Carbon Dioxide 28 (22-29) mmol/L Anion Gap 10 L (12-20) BUN 21 H (9-16) mg/dL Creatinine 0.90 (0.5-1.4) mg/dL Estim Creat Clear Calc 85.9 Estimated GFR > 60 Random Glucose 98 (60-115) mg/dL Calcium 9.5 (8.4-10.2) mg/dL Total Bilirubin 0.3 (0.0-1.0) mg/dL Direct Bilirubin 0.2 (0.0-0.5) mg/dL AST 17 (5-31) U/L ALT 15 (0-31) U/L Alkaline Phosphatase 93 (39-117) U/L Total Protein 8.0 (6.5-8.0) g/dL Albumin 4.5 (3.5-5.0) g/dL Lipase 39 (8-78) U/L Beta HCG, Quant < 2 mIU/mL Influenza Type A (PCR) NEGATIVE (Negative) Influenza Type B (PCR) NEGATIVE (Negative) RSV RNA Qual (PCR) NEGATIVE (Negative) SARS-CoV-2 RNA (RT-PCR) NEGATIVE (Negative) Independent Interpretation I performed an independent interpretation of an: CT Scan (normal ) Radiology Impression Discussion of test interpretation with radiology: I have reviewed the radiologist's reading. External Record Review External record reviewed: Outpatient record Prescription Management I considered prescription management with: Other Discharge Plan Discharge Clinical Impression: Adverse reaction to antidepressant drug Qualifiers: Encounter type: initial encounter Qualified Code(s): T43.205A - Adverse effect of unspecified antidepressants, initial encounter Patient Disposition: Home, Self-Care Instructions: Adverse Drug Reaction (ED), Serotonin Syndrome (ED) Additional Instructions: return for worsening symptoms, concerns confusion, visible shakes, seizures or any other concerns. call your doctor for follow up appointment stop taking the zoloft and trazodone labs normal, CT scan normal tick borne panel pending Prescriptions: New lorazepam 1 mg tablet 1 mg PO BID PRN (Reason: anxiety) Qty: 6 0RF No Action omeprazole 20 mg capsule,delayed release(DR/EC) 20 mg PO DAILY meclizine 25 mg tablet 25 mg PO DAILY PRN hydroxyzine HCl 50 mg tablet 50 mg PO DAILY pyridoxine (vitamin B6) 100 mg tablet 100 mg PO DAILY 90 Days Qty: 90 1RF Stand Alone Forms: Work/School Release Interventions: ED Discharge Assessment Last Done: 01/23/24 13:38 Discharge Date/Time: 01/23/24 13:39
[2024-01-23 12:47] LABS: Influenza A PCR NEGATIVE (Negative); Influenza B PCR NEGATIVE (Negative); Resp Syncy Virus RNA Qual PCR NEGATIVE (Negative); SARS COV2 PCR INHOUSE NEGATIVE (Negative)
[2024-01-23 13:38] VITALS: BP 112/89; PULSE 72; RESP 20; TEMP 36.7; O2SAT 98
[2024-01-26 04:43] LABS: A. Phagocytphilium DNA,RT-PCR NOT DETECTED (NOT DETECTED); Babesia Microti DNA, RT-PCR NOT DETECTED (NOT DETECTED); Borrelia Miyamotoi,DNA RT-PCR NOT DETECTED (NOT DETECTED); E.Chaffeensis DNA RT-PCR NOT DETECTED (NOT DETECTED); Lyme(Borrelia ssp)DNA RT-PCR NOT DETECTED (NOT DETECTED)
== END 2024-01-23 13:39 | disposition home or self-care (01) ==
PROVIDERS: Physician Assistant Medical; Emergency Provider Emergency Medicine; PCP Student in an Organized Health Care Education/Training Program
DX: G25.1 Drug-induced tremor (principal); T43.225A Adverse effect of selective serotonin reuptake inhibitors, initial encounter; T43.215A Adverse effect of selective serotonin and norepinephrine reuptake inhibitors, initial encounter; F41.9 Anxiety disorder, unspecified; F32.A Depression, unspecified; Y92.9 Unspecified place or not applicable; Z11.52 Encounter for screening for COVID-19; Z20.828 Contact with and (suspected) exposure to other viral communicable diseases
CPT/HCPCS: 0241U; 36415; 70450; 80048; 80076; 83690; 84702; 85025; 87468; 87469; 87478; 87484; 87798; 99282; 99284

== ENCOUNTER 2024-04-11 16:14 | Outpatient (REF) | payer OTHER, SELFPAY ==
[2024-04-11 17:31] LABS: Appearance Urine Clear; Color Urine Yellow; Glucose Urine UA Negative (Negative); Leukocyte Esterase Urine Small (1+) (Negative); Nitrite Urine Negative (Negative); PH 5.5 (5.0-9.0); Specific Gravity - Urine 1.025 (1.005-1.025); UMIC TRIGGER UACC YES; Urine Blood Negative (Negative); Urine Ketones Trace mg/dL (Negative); Urine Protein Negative (Neg-Trace)
[2024-04-11 17:47] LABS: Bacteria Urine None Seen (None Seen); Hyaline Casts Urine 0-2 /LPF (0-2); UACC Culture Trigger YES
== END 2024-04-11 16:15 | disposition home or self-care (01) ==
LOC: HO.CHCLNP 16:14
PROVIDERS: Visit Provider Registered Nurse
DX: R39.9 Unspecified symptoms and signs involving the genitourinary system (principal)
CPT/HCPCS: 81001; 87086

== ENCOUNTER 2024-05-27 10:08 | Outpatient (REF) | payer OTHER, SELFPAY ==
--- NOTE | 2024-05-27 10:25 | EMG_ITS ---
Left median and ulnar motor and sensory studies were performed. Left radial sensory and median and lateral antecubital brachial sensory studies were performed and paraspinal muscles were tested with a needle. IMPRESSION: This is an unremarkable study with no significant abnormality. MD HEMA Hayward/RHIANNON / [id number]
== END 2024-05-27 10:09 | disposition home or self-care (01) ==
LOC: HO.NEURO 10:08
PROVIDERS: Absent Provider Student in an Organized Health Care Education/Training Program; PCP Student in an Organized Health Care Education/Training Program; Visit Provider Internal Medicine Geriatric Medicine
DX: M79.642 Pain in left hand (principal); R20.0 Anesthesia of skin; R29.898 Other symptoms and signs involving the musculoskeletal system
CPT/HCPCS: 95886; 95910

== ENCOUNTER 2024-06-04 11:33 | Outpatient (REF) | payer OTHER, SELFPAY ==
--- NOTE | ~2024-06-04 | US_ITS ---
EXAMINATION: US RETROPERITONEAL LIMITED (RENAL ONLY) CLINICAL INFORMATION: Calculus of kidney. COMPARISON: 01/22/2023 renal ultrasound, 11/24/2022 CT abdomen and pelvis. TECHNIQUE: Real-time imaging of the kidneys. Limited visualization due to bowel gas. FINDINGS: RIGHT KIDNEY: 10.5 x 4.1 x 5.6 cm (SAG x AP x TRV). No hydronephrosis. No renal calculi. Renal cortical thickness is normal. Limited visualization. LEFT KIDNEY: 9.7 x 4.9 x 5.4 cm (SAG x AP x TRV). No hydronephrosis. No renal calculi. Renal cortical thickness is normal. Limited visualization. US/US renal BI IMPRESSION: No hydronephrosis. No renal calculi.
== END 2024-06-04 11:34 | disposition home or self-care (01) ==
LOC: HO.US 11:33
PROVIDERS: PCP Student in an Organized Health Care Education/Training Program; Visit Provider Nurse Practitioner Family
DX: N20.0 Calculus of kidney (principal)
CPT/HCPCS: 76775

== ENCOUNTER 2024-07-30 11:48 | Outpatient (AMB) | payer OTHER, SELFPAY ==
--- NOTE | 2024-07-30 11:49 | A.OFFVIS_ITS ---
Intake Visit Reasons: US Results(set) Intake Note: Patient presents today for televisit follow up on: kidney stone and ultrasound results Urology Medications: Vitamin B6 Blood Thinner: none Board Runner Required: No Allergies No Known Allergies Allergy (Verified 07/30/24 11:56) Medication List - Last Reconciled 07/30/24 by KOKI Limon hydroxyzine HCl 50 mg PO DAILY lorazepam 1 mg PO BID PRN meclizine 25 mg PO DAILY PRN norethindrone (contraceptive) mg PO omeprazole 20 mg PO DAILY pyridoxine (vitamin B6) 100 mg PO DAILY 90 days HPI Comments Details: Alesia is a pleasant 29 year old female patient of Dr. Vernon. She has a PMH of depression and nephrolithiasis. In discussion with the patient today she reports since her last office visit here approximately 1 year ago she believes she passed a kidney stone. She currently denies any bothersome urinary issues or concerns. Recent renal imaging results reviewed with the patient today 05/28 bilateral kidneys with no hydronephrosis and or renal calculi. Limited visualization. We discussed possibility of passing stone as previous imaging noted 2 mm right renal calculi over a year ago. When asked denies urinary urgency, urinary frequency, incontinence, nocturia, hematuria, dysuria, foul smelling urine, changes to urinary stream, flank pain, fever, and or chills. She reports to be drinking plenty of water daily. She otherwise offers no other issues or concerns at this time. [facility] Medical History Depression Surgical History Hx of wisdom tooth extraction Family History Maternal Grandfather HTN (hypertension) CVD (cardiovascular disease) Maternal Grandmother Diabetes mellitus Social History (Reviewed 07/30/24 @ 11:51 by Florina Herbert Alcohol intake: never Patient Tobacco Use Status: Never used Tobacco Gender identity: Female Female Reproductive History Menstrual Age of Menarche: 8 Review of Systems Const All systems reviewed & are unremarkable except as noted in HPI and below Physical Exam Const General: cooperative, healthy appearing, comfortable, no acute distress, well developed, alert and awake Orientation/consciousness: patient oriented x3 Resp Effort & Inspection: normal respiratory effort and able to speak in complete sentences Neuro General: patient oriented x3 Psych Appearance: grossly normal and well kempt Mental Status: mental status grossly normal Speech and movement: Normal speech and movement present and Clear speech present Affect: normal affect Attitude: cooperative Thought process: Normal thought process present Thought content: Normal thought content present Insight: Good insight present (Psych) Judgement: Good judgement present (Psych) Telehealth Telehealth Telehealth Platform: Octap[employer] Location of provider rendering services: practice address Location of patient: address on file Patient Identification confirmed using: Name, : Yes Telehealth method: video Patient verbally consented to treatment: Yes Patient verbally consented to billing insurance company: Yes Patient informed of any privacy concerns related to visit: Yes Minutes spent on Phone/Video with Pt.: 15 Results Reviewed Results Reviewed: Date of Service: 06/04/24 EXAMINATION: US RETROPERITONEAL LIMITED (RENAL ONLY) FINDINGS: RIGHT KIDNEY: 10.5 x 4.1 x 5.6 cm (SAG x AP x TRV). No hydronephrosis. No renal calculi. Renal cortical thickness is normal. Limited visualization. LEFT KIDNEY: 9.7 x 4.9 x 5.4 cm (SAG x AP x TRV). No hydronephrosis. No renal calculi. Renal cortical thickness is normal. Limited visualization. IMPRESSION: No hydronephrosis. No renal calculi. Assessment & Plan Assessment & Plan (1) Calculus of kidney: Code(s): N20.0 - Calculus of kidney Category: Medical Plan Recent renal imaging results reviewed with the patient today; as noted above. She currently denies any bothersome urinary issues or concerns. Continue vitamin B6; refill provided. Discussed adding 1 oz of lemon juice to water daily. Continue drinking plenty of water daily She reports be happy with current voiding parameters. Will obtain renal ultrasound in 1 year. Follow-up 1 year with imaging to be completed prior; or sooner with any issues, concerns, or questions. Orders: Orders US renal BI 1 Year N20.0 - Calculus of kidney Medications: Refilled pyridoxine (vitamin B6) 100 mg PO DAILY 90 days 90 tabs 3RF Patient Instructions: The patient had an opportunity to ask questions regarding the treatment plan. All questions were answered. Physical exam, labs, and imaging were discussed and reviewed in detail. As well as risks, benefits, and discussion of treatment choices. No major barriers to understanding were identified. The patient expressed understanding and agreement with the above treatment plan. The patient was made aware they should contact our office by phone for worsening of their current condition, the appearance of new symptoms, or with any questions or concerns. Compliance is encouraged with any medications and follow up testing that is ordered. It is a privilege to be allowed the opportunity to participate in? your urological care.? Again, if you have any questions or concerns If you have any questions or concerns please do not hesitate to contact me. The office is [phone]. This note is constructed using voice recognition software. While every effort has been made to ensure accuracy workers compensation defense attorney errors may have been included. Yours sincerely, KOKI Limon Coding Level of Care Code Tele Est Pt Level 3 (61349) Diagnoses Calculus of kidney N20.0 Time Spent (min) 15
== END 2024-07-30 12:12 | disposition home or self-care (01) ==
LOC: HO.HUSH 11:48
PROVIDERS: PCP Student in an Organized Health Care Education/Training Program; Visit Provider Nurse Practitioner Family
DX: N20.0 Calculus of kidney (principal)
CPT/HCPCS: 99213

== ENCOUNTER → 2024-07-30 11:48 | Outpatient (BNVA) | payer OTHER, SELFPAY | PROVIDERS: PCP Student in an Organized Health Care Education/Training Program; Visit Provider Nurse Practitioner Family ==

== ENCOUNTER 2025-01-01 11:06 | Outpatient (REF) | payer OTHER, SELFPAY ==
--- OUTSIDE RECORDS SUMMARY | 2025-01-02 12:59 | XMS_ITS | Encounter Summary ---
Author Organization [employer] Address [address] [place] [address] Care Team Providers Care Automotive Artist Name Role Phone Linda Vernon MD Primary Care Provider [phone] Reason for Visit * Reason Onset Date Comments Med Refill 01/28/2024 Encounter Details Date Type Department Care Team (Late st Contact Info) Description 01/28/2024 Telephone [facility] [address] [place] [address] Linda Vernon MD [address] [place] [address] Med Refill Social History Tobacco Use Types Packs/Day Years Used Date Smoking Tobacco: Never Smokeless Tobacco: Never Alcohol Use Standard Drinks/Week Comments Never 0 (1 standard drink = 0.6 oz pur e alcohol) Depression Answer Date Recorded Patient Health Questionnaire-9 Score 26 01/14/2024 Patient Health Questionnaire-9 Score 26 01/14/2024 Last PHQ-9: Questionnaire Data Not on file 0 01/14/2024 Depression Answer Date Recorded Patient Health Questionnaire-2 Score 6 01/14/2024 Comments No Sex and Gender Information Value Date Recorded Sex Assigned at Female 09/04/2022 10:28 AM EDT Legal Sex Female 10:28 AM EDT Gender Identity Female 09/04/2022 10:28 AM EDT Sexual Orientation Choose not to disclose 2021 10:28 AM EDT documented as of this encounter Miscellaneous Notes * Telephone Encounter - Courtney Rahman RN - 01/30/2024 12:11 PM EDT TC placed to patient with message below. Patient states that these meds will help her in the short-term and she can cancel her SDC appointment today at 2:20pm and f/u with her PCP on 02/20/24. Encouraged to call us with any needs, questions, concerns before her f/u. Advised that we can get her in for SDC appointment or televisit if needed. Patient expressed understanding and agreed. Pt is having panic attacks.Ativan will help acute attacks however pt needs long standing management Cymbalta resent . Short course of Ativan sent * Telephone Encounter - Linda Vernon MD - 01/30/2024 9:15 AM EDT Pt is having panic attacks.Ativan will help acute attacks however pt needs long standing management Cymbalta resent . Short course of Ativan sent * Telephone Encounter - Courtney Rahman RN - 01/29/2024 4:43 PM EDT TC placed to patient regarding message below. Patient states that she began having whole body tremors when she was prescribed trazodone and zoloft recently. Due to these symptoms, she was advised to stop both medications, but the tremors have continued. She states that it feels like she is deeply chilled and is constantly shivering. It is making daily activities difficult. She was prescribed Cymbalta on 01/19/24 but when she last checked, the script was not ready at the pharmacy. She will check again. She states she has been off anti-depressants for about one week and her mood/energy is very low. Denies thoughts of self-harm or harming others or SI. Just feels very flat, like she doesn't care about anything. Whole body tremors are making sleep and daily activities difficult. Patient states that she was seen in [facility] ED on 01/23/24 and prescribed Ativan, which helped with the tremors. She has now run out. Patient agreeable to come to [facility] for SDC appointment tomorrow, 01/30/24. Scheduled for 2:20pm. Advised that she can also seek eval and care in [facility] this evening if needed, and if so, TXC appointment for tomorrow can be canceled. Patient expressed understanding of all, denies emergent/urgent needs/symptoms and understand to go to WIC/ED if symptoms worsen. Routing to PCP so she is aware. Tc from pt requesting Ativan, stating it was prescribed by ER for muscle tremor and she feels it has been working well for her. If any questions please contact pt at [phone]. * Telephone Encounter - Alejandro Shirley - 01/28/2024 2:08 PM EDT Tc from pt requesting Ativan, stating it was prescribed by ER for muscle tremor and she feels it has been working well for her. If any questions please contact pt at [phone]. documented in this encounter Plan of Treatment Not on file documented as of this encounter Visit Diagnoses Not on filedocumented in this encounter Additional Health Concerns Assessment Noted Time PHQ-9 Depression Total Score: 26 024 12:26 PM EDT documented as of this encounter Care Teams Automotive Artist Relationship Specialty Start Date End Date Linda Vernon MD [address] [place] [address] PCP - General Family Medicine 08/10/15 documented as of this encounter
--- OUTSIDE RECORDS SUMMARY | 2025-01-02 12:59 | XMS_ITS | Encounter Summary ---
Author Organization [employer] Address [address] [place] [address] Care Team Providers Care Acid Wash Operator Name Role Phone Linda Vernon MD Primary Care Provider [phone] Encounter Details Date Type Department Care Team (Late st Contact Info) Description 01/30/2024 Orders Only [facility] [address] [place], [place] [id number] Linda Vernon MD [address] [place], [place] [id number] Social History Tobacco Use Types Packs/Day Years [...] AM EDT documented as of this encounter Plan of Treatment Not on file documented as of this encounter Visit Diagnoses Not on filedocumented in this encounter Additional Health Concerns Assessment Noted Time PHQ-9 Depression Total Score: 26 024 12:26 PM EDT documented as of this encounter Care Teams Acid Wash Operator Relationship Specialty Start Date End Date Linda Vernon MD [address] [place] [id number] PCP - General Family Medicine 08/10/15 documented as of this encounter
--- OUTSIDE RECORDS SUMMARY | 2025-01-02 13:00 | XMS_ITS | Encounter Summary ---
Author Organization [employer] Address [address] [facility] 7t [place] [address] Care Team Providers Care Sales Floor Team Leader Name Role Phone Linda Vernon MD Primary Care Provider [phone] Reason for Visit * Reason Onset Date Comments MRI SHOULDER 12/03/2024 Encounter Details Date Type Department Care Team (Late st Contact Info) Description 12/03/2024 Telephone [facility] [address] [place], [place] [phone] Blessing Echevarria MD [address] [place], [place] [phone] MRI SHOULDER Social History Tobacco Use Types Packs/Day Years Used Date Smoking Tobacco: Never Smokeless Tobacco: Never Alcohol Use Standard Drinks/Week Comments Never 0 (1 standard drink = 0.6 oz pur e alcohol) Depression Answer Date Recorded Patient Health Questionnaire-9 Score 16 12/01/2024 Patient Health Questionnaire-9 Score 16 12/01/2024 Last PHQ-9: Questionnaire Data Not on file 0 12/01/2024 Housing Stability Answer Date Recorded What is your housing situation today? I have penny thompson 12/01/[address] you li ve. Do you have problems with any of the following? None of the above 12/01/2024 Food Insecurity Answer Date Recorded Within the past 12 months, y ou worried that your food would run out before you got money to buy more: Sometimes True 2024 Within the past 12 months,th e food you bought just didn't last and you didn't have enough money to get more: Sometimes True 12/01/2024 Transportation Answer Date Recorded In the past 12 months, has l ack of transportation kept you from medical appts, meetings, work or from getting things needed for daily living? No 12/01/2024 Utilities Answer Date Recorded In the past 12 months, has t he electric, gas, oil or water company threatened to shut off services in your home? No 12/01/2024 Depression Answer Date Recorded Patient Health Questionnaire-2 Score 3 12/01/2024 Internet Access Answer Date Recorded Internet Access Q1 Yes 12/01/2024 Internet Access Q2 Not on file 12/01/2024 Comments No Sex and Gender Information Value Date Recorded Sex Assigned at Female 09/04/2022 10:28 AM EDT Legal Sex Female 10:28 AM EDT Gender Identity Female 09/04/2022 10:28 AM EDT Sexual Orientation Choose not to disclose 2021 10:28 AM EDT documented as of this encounter Miscellaneous Notes * Telephone Encounter - Karla Oliver RN - 12/04/2024 3:16 PM EST TC to patient. Explained that physical therapy needs to be completed prior to MRI approval. Patienthad multiple question and concerns that were address. Patient agrees to do physical therapy and will call office with any questions or concerns. * Telephone Encounter - Blessing Echevarria MD - 12/03/2024 4:54 PM EST Please inform the patient that she has to go through physical therapy first prior to getting the MRI approved. * Telephone Encounter - Mikaela Mckeon - 12/03/2024 1:20 PM EST Please review evicore letter scanned in pts chart in media and advise. Thank you documented in this encounter Plan of Treatment Not on file documented as of this encounter Visit Diagnoses Not on filedocumented in this encounter Additional Health Concerns Assessment Noted Time PHQ-9 Depression Total Score: 16 025 10:05 AM EST documented as of this encounter Care Teams Sales Floor Team Leader Relationship Specialty Start Date End Date Linda Vernon MD [address] [place] [phone] PCP - General Family Medicine 08/10/15 documented as of this encounter
--- OUTSIDE RECORDS SUMMARY | 2025-01-02 13:00 | XMS_ITS | Encounter Summary ---
Author Organization [employer] Address [address] [facility] 7t [place] [address] Care Team Providers Care Supervisor Assembly Room Name Role Phone Linda Vernon MD Primary Care Provider [phone] Reason for Visit * Reason Onset Date Comments Letter for School/Work 01/18/2024 Encounter Details Date Type Department Care Team ([facility] st Contact Info) Description 01/18/2024 Telephone [facility] MED & PEDS [address] [place], [place] [phone] Linda Vernon MD [address] [place] [address] Letter for School/Work Social History Tobacco Use Types Packs/Day Years [...] encounter Miscellaneous Notes * Telephone Encounter - Roberta Houstonrero - 01/18/2024 10:18 AM EDT Tc from Kristine with [employer] requesting a call from a nurse to confirm a letter excusing the patient from work from the 05 of January until May 042023. 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 Please contact Kiesha @ [phone] documented in this encounter Plan of Treatment Not on file documented as of this encounter Visit Diagnoses Not on filedocumented in this encounter Additional Health Concerns Assessment Noted Time PHQ-9 Depression Total Score: 26 024 12:26 PM EDT documented as of this encounter Care Teams Supervisor Assembly Room Relationship Specialty Start Date End Date Linda Vernon MD [address] [place] [phone] PCP - General Family Medicine 08/10/15 documented as of this encounter
--- OUTSIDE RECORDS SUMMARY | 2025-01-02 13:00 | XMS_ITS | Encounter Summary ---
Author Organization [employer] Address [address] [facility] 7t [place] [address] Care Team Providers Care Sand Sifter Name Role Phone Linda Vernon MD Primary Care Provider [phone] Reason for Visit * Reason Onset Date Comments Med Refill 12/27/2024 Encounter Details Date Type Department Care Team (Late st Contact Info) Description 12/27/2024 Refill [facility] MED & PEDS [address] [place], [place] [phone] Linda Vernon MD [address] [place] [address] Social History Tobacco Use Types Packs/Day Years [...] documented as of this encounter Care Teams Sand Sifter Relationship Specialty Start Date End Date Linda Vernon MD [address] [place] [address] PCP - General Family Medicine 08/10/15 documented as of this encounter
--- OUTSIDE RECORDS SUMMARY | 2025-01-02 13:00 | XMS_ITS | Clinical Summary ---
Author Organization [employer] Address [address] [facility] 7t [place] [address] Care Team Providers Care Environmental Health Officer Name Role Phone Linda Vernon MD Primary Care Provider [phone] Allergies No known active allergies Medications * This document contains information received from the source organization and may not represent a complete record from that organization. omeprazole (PriLOSEC) [address] capsuleIndicati ons:GERD without esophagitis TAKE 1 CAPSULE BY MOUTH BEFORE BREAKFAST. DO NOT CRUSH, CHEW, OR SPLIT. 90 capsule 2 02/08/20 24 Active DULoxetine (Cymbalta) [address] capsuleIndicati ons:Severe episode of recurrent major depressive disorder, with psychotic features (CMS/HCC) Take 1 capsule (20 mg) by mouth Once per day. Do not crush or chew. 30 capsule 04/11/20 24 025 Active cetirizine (ZyrTEC) 10 MG tablet TAKE 1 TABLET BY MOUTH IN THE MORNING 30 tablet 5 10/15/20 24 Active omeprazole OTC (PriLOSEC OTC) 20 MG EC tabletIndicatio ns:GERD without esophagitis Take 2 tablets (40 mg) by mouth before breakfast. Do not crush, chew, or split. 90 tablet 3 12/01/19 25 Active LORazepam (Ativan) 0.5 MG tablet Take 1 tablet (0.5 mg) by mouth 2 times daily for 7 days. 14 tablet 12/30/19 25 025 Active LORazepam (Ativan) 0.5 MG tablet Take 1 tablet (0.5 mg) by mouth 2 times daily for 7 days. 14 tablet 01/30/20 24 025 Discontinued(Re order (will not trigger notification to Pharmacy)) celecoxib (CeleBREX) 200 MG capsuleIndicati ons:Chronic right shoulder pain Take 1 capsule (200 mg) by mouth 2 times daily. 60 capsule 12/01/19 25 025 Active Problems Problem Noted Date Diagnosed Date Severe episode of recurrent major depressive disorder, with psychotic features 01/14/2024 Assessment & Plan (04/13/2024 1:15 PM EDT): Pt initially tx with sertraline and trazodone, although developed tremors and went to ED with concern for serotonin syndrome Subsequently initiated on duloxetine, although experiencing urinary SE since med initiation. Per UTD, following SE listed: urinary frequency (>1%), urinary urgency (<1%), nocturia (<1%), and urinary retention in post-marketing Discussed considerations with pt, shared decision making to taper dose of cymbalta. If symptoms improve, then likely med SE, if persistent, need to investigate other causes. Deferred start of other med at this time, plan to follow up with PCP after upcoming vacation Assessment & Plan (01/14/2024 12:47 PM EDT): PROGRESS NOTE: ID: Alesia is a 28 y.o. White cis-female with MH services including OP Psychotherapy No previous hx of MH dx or sx who presents for Anxiety and Depression. Loss a child 3 years ago. Lives with partner. 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 Hx of trauma in both childhood and adulthood, Hx of thoughts, w/o plan or intent. During IBH Consult Alesia presenting with depressed mood, loss of interests/pleasure , changes in sleep difficulty falling asleep and difficulty staying asleep , change in appetite or weight ptn reported her appetite varies from poor to over eating , psychomotor agitation, trouble concentrating, fatigue/loss of energy, worthlessness , thoughts of and excessive worry/anxiety, difficulty controlling worry, restless/keyed up/On edge, easily fatigued, difficulty concentrating/Mind going blank , irritability, muscle tension, and sleep disturbance difficulty falling asleep and difficulty staying asleep ; for a period of 18+ mo, for all symptoms in the context of losing her child 3 years ago and, stress at work. PLAN: New/Additional Services needed PCP management Off-site services for Behavioral Health Integration Plan External OP therapy referral and OP psychiatry Referral Patient Self Plan Patient to utilize skills provided in intervention , Patient to reach out to [facility] team as needed, Comply with medication , and Patient to reach out to [facility] as needed Severe anxiety with panic 01/14/2024 Cannabis use disorder 01/14/2024 Encounters Date Type Department Care Team Description 12/27/2024 Refill [facility] MED & PEDS [address] [place] [address] Linda Vernon MD 12/03/2024 Telephone [facility] [address] [place], [place] [phone] Blessing Echevarria MD MRI SHOULDER 12/01/2024 9:00 AM EST Office Visit [facility] PEDS [address] [place] [address] Blessing Echevarria MD Chronic right shoulder pain (Primary Dx); GERD without esophagitis 12/01/2024 Telephone [facility] PEDS [address] [place] [address] Linda Vernon MD PCP OTHER 12/01/2024 Travel 12/01/2024 Telephone [facility] MEDICINE [address] [place], [place] [phone] Linda Vernon MD Nurse Triage 10/15/2024 Refill [facility] [address] [place] [address] Linda Vernon MD from Last 3 Months Immunizations Name Administration Dates Next Due DTP 01/02/1995, 4,1993,09/04 DTaP / IPV 04/26/1998, 5,01/02/1994,11/04,1993 DTaP, 5 pertussis antigens 04/26/1998 HPV, Quadrivalent 09/28/2008,01/17/2008,10/18/20 07 Hep B, Adolescent or Pediatric 01/02/1994,1992,1993 HiB, unspecified 10/18/2007 Hib (PRP-T) 10/04/1994, 4,1993,09/04 IPV 01/02/1994,1993,1993 Influenza, IIV3, injectable 10/18/2009, 8 MMR 04/26/1998,07/05/1994 Meningococcal MCV4P [id number]-135 10/18/2007 OPV 04/26/1998 TD (adult), 2 Lf tetanus tox oid, preservative free, adsorbed 05/16/2005 Tdap 01/14/2024,10/18/2007 Varicella 09/28/2008,06/30/1998 Social History Tobacco Use Types Packs/Day Years Used Date Smoking Tobacco: Never Smokeless Tobacco: Never Tobacco Cessation:Counseling Given: Not Answered Alcohol Use Standard Drinks/Week Comments Never 0 [...] not to disclose 2021 10:28 AM EDT Last Filed Vital Signs Vital Sign Reading Time Taken Comments Blood Pressure 126/71 12/01/2024 9:30 AM EST Pulse 65 12/01/2024 9:30 AM EST Temperature 36.5 ??C (97.7 ??F) 12/01/2024 9:30 AM ES T Respiratory Rate 20 12/01/2024 9:30 AM EST Oxygen Saturation 99% 12/01/2024 9:30 AM EST Inhaled Oxygen Concentration - - Weight 69.9 kg (154 lb) 12/01/2024 9:30 AM EST Height 160 cm (5' 3 ) 12/01/2024 9:30 AM EST Body Mass Index 27.28 12/01/2024 9:30 AM EST Plan of Treatment Health Maintenance Due Date Last Done Comments HIV Screening 1993 Family Planning (PISQ) 2008 Hepatitis A Vaccines (1 of 2 - Risk 2-dose series) 2012 Pap Smear 2014 Cervical Cancer Screening 2023 HPV/Cotest 2023 COVID-19 Vaccine ( - season) 2024 02/13/2021 Influenza Vaccine (#1) 2024 9, 10/18/2009, 09/29/2009, Additional history exists Tobacco Screening 04/11/2025 04/11/2024 Depression Monitoring (PHQ-9) 05/31/2025 12/01/2024, 12/01/2024 Alcohol/Substance Use Screening 12/01/2025 12/01/2024 Depression Screening 12/01/2025 12/01/2024, 12/01/19 25 SDOH Screening 12/01/2025 12/01/2024 DTaP/Tdap/Td Vaccines (8 - Td or Tdap) 01/13/2034 01/14/2024, 10/18/2007, 05/16/2005, Additional history exists Zoster Vaccines (1 of 2) 2043 RSV Patients and Patients Aged 60 years or older (1 - 1-dose 75+ series) 2068 Hepatitis B Vaccines Completed 01/02/1994, 01/02/1994, 1993, Additional history exists IPV Vaccines Completed 04/26/1998, 04/06, 01/02/1995, Additional history exists HIB Vaccines Completed 10/18/2007, 09/07, 01/02/1994, Additional history exists Meningococcal Vaccine Aged Out 10/18/2007 No danielle mireya eligible based on patient's age to complete this topic HPV Vaccines Completed 09/28/2008, 09/06, 01/17/2008, Additional history exists Hepatitis C Screening Completed 01/14/2024 Pneumococcal Vaccine: Pediatrics (0 to 5 Years) and At-Risk Patients (6 to 49) Years) Aged Out No longer eligible based on patient's age to complete this topic RSV under 20 months Aged Out No longe r eligible based on patient's age to complete this topic Rotavirus Vaccines Aged Out No longer eligible based on patient's age to complete this topic Procedures Procedure Name Priority Date/Time Associated Diagnosis Comments HEPATITIS C AB W/REFL TO HCV RNA, QN, PCR Routine 01/14/2024 11:14 AM EDT PE (physical exam), annual from Last 3 Months or Most Recently Relevant to Health Maintenance Results * Hepatitis C Antibody with Reflex to HCV, RNA, Quantitative, Real-Time PCR (01/14/2024 11:14 AM EDT) Hepatitis C Antibody Nonreactive Nonreactive [facility] Comment:Antibodies to HCV no t detected; does not exclude early acuteHCV infection. Blood Venous blood specimen / Unknown 01/14/2024 11:14 AM EDT 01/14/2024 2:07 PM EDT us Linda Vernon MD LAB BLOOD ORDERABLES Final Resul t [facility] [address] [place] [phone] from Last 3 Months or Most Recently Relevant to Health Maintenance Insurance [employer] Care Teams Environmental Health Officer Relationship Specialty Start Date End Date Linda Vernon MD [address] [place] [phone] PCP - General Family Medicine 08/10/15
== END 2025-01-01 11:07 | disposition home or self-care (01) ==
LOC: HO.HOSX 11:06
PROVIDERS: Visit Provider Physician Assistant
DX: Z13.89 Encounter for screening for other disorder (principal)

== ENCOUNTER 2025-09-23 13:02 | Outpatient (REF) | payer MEDICAID, SELFPAY ==
--- NOTE | ~2025-09-23 | US_ITS ---
EXAMINATION: Renal ultrasound CLINICAL INFORMATION: Kidney stone. COMPARISON: Previous renal ultrasound most recent May [address] of the abdomen and pelvis November 2022 TECHNIQUE: Real-time imaging of the kidneys. FINDINGS: RIGHT KIDNEY: 9.8 x 4.3 x 4.5 cm (SAG x AP x TRV). The kidney is normal in size, contour, and echogenicity. Renal cortical thickness is normal. No calculi or focal parenchymal lesions. No hydronephrosis. LEFT KIDNEY: 9.5 x 5.2 x 4.5 cm (SAG x AP x TRV). The kidney is normal in size, contour, and echogenicity. Renal cortical thickness is normal. No calculi or focal parenchymal lesions. No hydronephrosis. US/US renal BI IMPRESSION: Unremarkable exam. No stone seen. Electronically signed by: Scarlet Bradley MD 09/23/2025 01:26 PM THAI
--- OUTSIDE RECORDS SUMMARY | 2025-09-24 00:54 | XMS_ITS | Encounter Summary ---
Author Organization [facility] Address [address] [place] [address] Phone Care Team Providers Care Slurry Tank Tender Name Role Phone Swetha Sprague MD Primary Care Provider Encounter Details Date Type Department Care Team (Late st Contact Info) Description 06/21/2017 Conversion Encounter [facility] [place] [address] [place] [address] Social History Tobacco Use Types Packs/Day Years Used Date Smoking Tobacco: Never Comments:Never smoker Comments Unknown Sex and Gender Information Value Date Recorded Sex Assigned at Not on file Legal Sex Female 4:51 PM EDT Gender Identity Not on file Sexual Orientation Not on file documented as of this encounter Plan of Treatment Not on file documented as of this encounter Visit Diagnoses Not on filedocumented in this encounter Care Teams Slurry Tank Tender Relationship Specialty Start Date End Date Swetha Sprague MD [address] [place] [address] PCP - General 06/15/17 04/12/23 documented as of this encounter
--- OUTSIDE RECORDS SUMMARY | 2025-09-24 00:54 | XMS_ITS | Clinical Summary ---
Author Organization [facility] Address [address] [place] [phone] Phone Care Team Providers Care Astronomy Instructor Name Role Phone Unavailable Primary Care Provider Unavailabl e Immunizations Immunization Administration Dates Next Due DTP 01/02/1995,199 4,1993,09/04 DTaP 5 04/26/1998 H1N1 09/29/2009 HPV, Quadrivalent 09/28/2008,01/17/2008,10/18/20 07 Hep B, ped/adol 01/02/1994,1993,1993 Hib (PRP-T) 10/04/1994, 4,1993,09/04 IPV 01/02/1994,1993,1993 Influenza, injectable, trivalent 10/18/2009,09/06 MMR 04/26/1998,07/05/1994 Meningococcal Conj (Menactra) MCV4P 10/18/2007 OPV 04/26/1998 Td (adult) (MBL), 2 Lf tetan us toxoid, PF, adsorbed 05/16/2005 Tdap 10/18/2007 Varicella 09/28/2008,06/30/1998 Family History Relation Name Status Comments Father Father: unknown Half-Brother Alive Half brother (M ): Asthma Half-Sister Alive Half sister (M) : Alive and well Mother Alive Mother: Alive a nd well Other 1 grandparents: H yperlipidemia, Diabetes mellitus Other 2 grandparents: H yperlipidemia, Diabetes mellitus Sister Alive Sister: Alive a nd well, , Social History Tobacco Use Types Packs/Day Years Used Date Smoking Tobacco: Never Comments:Never smoker Comments Unknown Sex and Gender Information Value Date Recorded Sex Assigned at Not on file Legal Sex Female 4:51 PM EDT Gender Identity Not on file Sexual Orientation Not on file Last Filed Vital Signs Vital Sign Reading Time Taken Comments Blood Pressure 108/70 07/23/2013 12:00 AM EDT Pulse - - Temperature 36.9 C (98.5 F) 03/14/2014 12:00 AM EDT Respiratory Rate - - Oxygen Saturation - - Inhaled Oxygen Concentration - - Weight 52.9 kg (116 lb 9.6 oz) 03/14/2014 12:00 AM EDT Height 162.1 cm (5' 3.8 ) 07/23/2013 12:00 AM ED T Body Mass Index 20.14 07/23/2013 12:00 AM EDT Plan of Treatment Health Maintenance Due Date Last Done Comments DTaP,Tdap,and Td Vaccines (7 - Td or Tdap) 10/18/2017 10/18/2007, 05/16/2005, 04/26/1998, Additional history exists Influenza Vaccines (#1) 2025 10/18/2009, 09/28 COVID-19 Vaccine ( season) 2025 Hepatitis B Vaccines Completed 01/02/1994, 1993, 1993 HIB Vaccines Completed 10/04/1994, 12/07, 1993, Additional history exists IPV Vaccines Completed 04/26/1998, 12/07, 1993, Additional history exists MMR Vaccines Completed 04/26/1998, 07/05/1994 Meningococcal Vaccine Aged Out 10/18/2007 No danielle mireya eligible based on patient's age to complete this topic HPV Vaccines Completed 09/28/2008, 01/03, 10/18/2007 Varicella Vaccines Completed 09/28/2008, 06/30/1998 Hepatitis A Vaccines Aged Out No long er eligible based on patient's age to complete this topic Men B Vaccine Aged Out No longer elig ible based on patient's age to complete this topic Pneumococcal Vaccine Aged Out No long er eligible based on patient's age to complete this topic Procedures * Due to [place] [email or web address] law, this organization might not be sharing sensitive test results. Procedure Name Priority Date/Time Associated Diagnosis Comments CHLAMYDIA AND GONORRHEA, AMPLIFIED Routine 07/24/2013 1:32 PM EDT from Last 3 Months or Most Recently Relevant to Health Maintenance Results * Due to [place] state law, this organization might not be sharing sensitive test results. * Chlamydia and Gonorrhoea, Amplified (07/24/2013 1:32 PM EDT) URINE CHLAMYDIA AMP PROBE NEGATIVE [facility] Comment: NO CHLAMYDIA TRACHOMATIS RNA DETECTED IN THIS PATIENT'S SAMPLE. (REFERENCE RANGE/NORMAL VALUE: NOT DETECTED) URINE GC AMP PROBE NEGATIVE [facility] Comment: NO NEISSERIA GONORRHOEAE RNA DETECTED IN THIS PATIENT'S SAMPLE. (REFERENCE RANGE/NORMAL VALUE: NOT DETECTED) NOTE: THIS TEST USES ADMINISTRATION INTERNSHIP-MEDIATED AMPLIFICATION METHOD TO DETECT rRNA FROM C.TRACHOMATIS AND N.GONORRHOEAE. A NEGATIVE RESULT DOES NOT PRECLUDE INFECTION. THE APTIMA COMBO 2 ASSAY IS NOT INTENDED FOR THE EVALUATION OF SUSPECTED SEXUAL ABUSE OR FOR OTHER MEDICO LEGAL INDICATIONS. THERAPEUTIC FAILURE OR SUCCESS CANNOT BE DETERMINED WITH THE APTIMA COMBO 2 ASSAY SINCE NUCLEIC ACID MAY PERSIST FOLLOWING APPROPRIATE ANTIMICROBIAL THERAPY. IN THE CASE OF A NEGATIVE URINE RESULT, TESTING OF AN ENDOCERVICAL (FEMALE) OR URETHRAL (MALE) SPECIMEN IS RECOMMENDED IF THERE IS HIGH CLINICAL SUSPICION OF INFECTION. 07/24/2013 1:32 PM EDT Narrative [facility] - 07/24/2013 1:32 PM EDT URINE CHLAMYDIA GC AMP PROBE us Swetha Sprague MD LAB MICROBIOLOGY - GENERAL ORDERABLES Final Result [facility] [address] [place] [address], [place] from Last 3 Months or Most Recently Relevant to Health Maintenance
--- OUTSIDE RECORDS SUMMARY | 2025-09-24 00:54 | XMS_ITS | Clinical Summary ---
Author Organization [employer] Address [address] [facility] 7t [place] [address] Care Team Providers Care Transit Survey Worker Name Role Phone Benny Kilgore MD Primary Care Prov ider Allergies No known active allergies Medications * This document contains information received from the source organization and may not represent a complete record from that organization. omeprazole (PriLOSEC) [address] capsuleIndicati ons:GERD without esophagitis TAKE 1 CAPSULE BY MOUTH BEFORE BREAKFAST. DO NOT CRUSH, CHEW, OR SPLIT. 90 capsule 2 4 Active DULoxetine (Cymbalta) [address] capsuleIndicati ons:Severe episode of recurrent major depressive disorder, with psychotic features (CMS/HCC) (HCC) Take 1 capsule (20 mg) by mouth Once per day. Do not crush or chew. 30 capsule 4 Active cetirizine (ZyrTEC) 10 MG tablet TAKE 1 TABLET BY MOUTH IN THE MORNING 30 tablet 5 4 Active LORazepam (Ativan) 0.5 MG tablet Take 1 tablet (0.5 mg) by mouth 2 times daily for 7 days. 14 tablet 5 Active QUEtiapine (SEROquel) 50 MG tablet Take 1 tablet (50 mg) by mouth 2 times daily. 60 tablet 5 Active omeprazole (PriLOSEC) [address] capsuleIndicati ons:GERD without esophagitis TAKE 1 CAPSULE BY MOUTH BEFORE BREAKFAST. DO NOT CRUSH, CHEW, OR SPLIT. 90 capsule 5 Active omeprazole OTC (PriLOSEC OTC) 20 MG EC tabletIndicatio ns:GERD without esophagitis Take 2 tablets (40 mg) by mouth before breakfast. Do not crush, chew, or split. 90 tablet 3 5 025 Discontinued Active Problems Problem Noted Date Diagnosed Date Cannabis use disorder 01/14/2024 Moderate major depression (CMS/HCC) 01/14/2024 Assessment & Plan (05/20/2025 3:37 PM EDT): >>ASSESSMENT AND PLAN FOR SEVERE EPISODE OF RECURRENT MAJOR DEPRESSIVE DISORDER, WITH PSYCHOTIC FEATURES (CMS/HCC) WRITTEN ON 01/14/2024 12:47 PM BY ALEXANDRO MATTHEW PROGRESS NOTE: ID: Alesia is a 28 y.o. White cis-female with MH services including OP Psychotherapy No previous hx of MH dx or sx who presents for Anxiety and Depression. Loss a child 3 years ago. Lives with partner. 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 Hx of trauma [...] for Behavioral Health Integration Plan External OP BH therapy referral and OP psychiatry Referral Patient Self Plan Patient to utilize skills provided in intervention , [facility], Comply with medication , and Patient to reach out to [facility] as needed Assessment & Plan (05/20/2025 3:37 PM EDT): >>ASSESSMENT AND PLAN FOR SEVERE EPISODE OF RECURRENT MAJOR DEPRESSIVE DISORDER, WITH PSYCHOTIC FEATURES (CMS/HCC) WRITTEN ON 04/13/2024 1:15 PM BY LIS TALLEY Pt initially tx with sertraline and trazodone, [...] follow up with PCP after upcoming vacation REYES (generalized anxiety disorder) 01/14/2024 Encounters Date Type Department Care Team Description 09/23/2025 Orders Only [facility] External Provider, [facility] 09/11/[address] [address] Benny Kilgore MD Referral 09/07/2025 Refill [facility] [address] [place] [address] Blessing Echevarria MD GERD without esophagitis 08/20/2025 Telephone [facility] [address] [place] [address] Linda Vernon MD Letter for School/Work 07/20/2025 Telephone [facility] [address] [place] [address] Linda Vernon MD Nurse Triage 07/07/2025 Telephone [facility] [address] [place] [address] Linda Vernon MD Chart Prep 06/30/2025 Patient Outreach [address] [address] Linda Vernon MD Pre-visit Planning (Pre visit planning LVM ) from Last 3 Months Immunizations Immunization Administration Dates Next Due DTP 01/02/1995, 4,1993,09/04 DTaP / IPV 04/26/1998, 5,01/02/1994,11/04,1993 DTaP, 5 pertussis antigens 04/26/1998 HPV 9-Valent 10/18/2007 HPV, Quadrivalent 09/28/2008,01/17/2008,10/18/20 07 HPV, Unspecified 09/28/2008,01/17/2008 Hep B, Adolescent or Pediatric 01/02/1994,1992,1993 Hep B, adult 01/02/1994,1993,1993 HiB, unspecified 10/18/2007,10/04/1994, 4 Hib (PRP-T) 10/04/1994, 4,1993,09/04 IPV 01/02/1994,1993,1993 Influenza injectable quadriv alent preservative free 10/18/2009,09/28/2008 Influenza, IIV3, injectable 10/18/2009, 8 MMR 04/26/1998,07/05/1994 Meningococcal MCV4P ACYW-135 10/18/2007 Novel [id number], all formulations 09/29/2009 OPV, Trivalent 04/26/1998 TD (adult), 2 Lf tetanus tox oid, preservative free, adsorbed 05/16/2005 Tdap 01/14/2024,10/18/2007 Varicella 09/28/2008,06/30/1998 Social History Tobacco Use Types Packs/Day Years Used Date Smoking Tobacco: Never Smokeless Tobacco: Never Tobacco Cessation:Counseling Given: Not Answered Alcohol Use Standard Drinks/Week Comments Never 0 (1 standard drink = 0.6 oz pur e alcohol) Depression Answer Date Recorded Patient Health Questionnaire-9 Score 17 05/20/2025 Patient Health Questionnaire-9 Score 17 05/20/2025 Last PHQ-9: Questionnaire Data Not on file 0 05/20/2025 Housing Stability Answer Date Recorded What is [...] Date Recorded Patient Health Questionnaire-2 Score 6 05/20/2025 Internet Access Answer Date Recorded Internet Access [...] Sign Reading Time Taken Comments Blood Pressure 114/72 05/20/2025 3:07 PM EDT Pulse 80 05/20/2025 3:07 PM EDT Temperature 37.1 C (98.7 F) 05/20/2025 3:07 PM EDT Respiratory Rate 20 05/20/2025 3:07 PM EDT Oxygen Saturation 99% 12/01/2024 9:30 AM EST Inhaled Oxygen Concentration - - Weight 70.1 kg (154 lb 9.6 oz) 05/20/2025 3:07 P M EDT Height 160 cm (5' 3 ) 05/20/2025 3:07 PM EDT Body Mass Index 27.39 05/20/2025 3:07 PM EDT Plan of Treatment Health Maintenance Due Date Last Done Comments HIV Screening 1993 Disability Screening 1993 Family Planning (PISQ) 2008 Tobacco Screening 04/11/2025 04/11/2024 COVID-19 Vaccine ( season) 2025 02/13/2021 Influenza Vaccine (#1) 2025 9, 10/18/2009, 09/29/2009, Additional history exists Depression Monitoring 11/20/2025 05/20/2025, 025 Alcohol/Substance Use Screening 12/01/2025 12/01/2024 SDOH Screening 12/01/2025 12/01/2024 Cervical Cancer Screening 06/18/2029 HPV/Cotest 06/18/2029 06/18/2024 Pap Smear 06/18/2029 06/18/2024 DTaP/Tdap/Td Vaccines (8 - Td or Tdap) 01/13/2034 01/14/2024, 10/18/2007, 05/16/2005, Additional history exists Zoster Vaccines (1 of 2) 2043 RSV Patients and Patients Aged 60 years or older (1 - 1-dose 75+ series) 2068 Hepatitis B Vaccines Completed 01/02/1994, 01/02/1994, 1993, Additional history exists IPV Vaccines Completed 04/26/1998, 04/06, 01/02/1995, Additional history exists HIB Vaccines Completed 10/18/2007, 09/07, 10/04/1994, Additional history exists Meningococcal Vaccine Aged Out 10/18/2007 No danielle mireya eligible based on patient's age to complete this topic HPV Vaccines Completed 09/28/2008, 09/06, 01/17/2008, Additional history exists Hepatitis C Screening Completed 01/14/2024 Hepatitis A Vaccines Aged Out No long er eligible based on patient's age to complete this topic Meningococcal B Vaccine Aged Out No l onger eligible based on patient's age to complete this topic Pneumococcal Vaccine: Pediatrics (0 to 5 Years) and At-Risk Patients (6 to 49) Years Aged Out No longer eligible based on patient's age to complete this topic RSV under 20 months Aged Out No longe r eligible based on patient's age to complete this topic Rotavirus Vaccines Aged Out No longer eligible based on patient's age to complete this topic Procedures Procedure Name Priority Date/Time Associated Diagnosis Comments US RENAL COMPLETE Routine 09/23/2025 1:1 0 PM EST HM PAP/HPV Routine 06/18/2024 12:00 AM EDT HEPATITIS C AB W/REFL TO HCV RNA, QN, PCR Routine 01/14/2024 11:14 AM EDT PE (physical exam), annual from Last 3 Months or Most Recently Relevant to Health Maintenance Results * US Renal Complete (09/23/2025 1:10 PM EST) Anatomical Region Laterality Modality Kidney Ultrasound 09/23/2025 1:10 PM EST Narrative 09/23/2025 1:29 PM EST [facility] Adult Primary Care [facility] [place] [address] Ultrasound Report Signed Patient: Alesia Shirley MR#: [id number] : 1995 Acct:[id number] Age/Sex: 30 / F ADM Date: 09/23/25 Loc: HO.HMGCX Attending Dr: Narda TELLES Ordering Physician: Narda Garcia Date of Service: 09/23/25 Procedure(s): US renal BI Accession Number(s): [id number] cc: Narda Garcia; Linda Vernon MD Reason for Exam: N20.0 - Calculus of kidney EXAMINATION: Renal ultrasound CLINICAL INFORMATION: Kidney stone. COMPARISON: Previous renal ultrasound most recent May [address] of the abdomen and pelvis November 2022 TECHNIQUE: Real-time imaging of the kidneys. FINDINGS: RIGHT KIDNEY: 9.8 x 4.3 x 4.5 cm (SAG x AP x TRV). The kidney is normal in size, contour, and echogenicity. Renal cortical thickness is normal. No calculi or focal parenchymal lesions. No hydronephrosis. LEFT KIDNEY: 9.5 x 5.2 x 4.5 cm (SAG x AP x TRV). The kidney is normal in size, contour, and echogenicity. Renal cortical thickness is normal. No calculi or focal parenchymal lesions. No hydronephrosis. US/US renal BI IMPRESSION: Unremarkable exam. No stone seen. Electronically signed by: Scarlet Bradley MD 09/23/2025 01:26 PM EST RP Dictated By: Scarlet Bradley MD Signed By: <Electronically signed by Scarlet Bradley MD in OV> 09/23/25 1326 DD/ 1310 TD/TT: 09/23/25 1319 [employer] Text[employer] Supervisor: AARON Procedure Note Donotuseinterpreter, Image - 09/23/2025 [facility] Primary Care [address] [place] [address] [place] [address] Ultrasound Report Signed Patient: Alesia ShirleyMR#: [id number] : 1995Acct:[id number] Age/Sex: 30 / FADM Date: 09/23/25 [facility] Att[facility] Dr: Narda TELLES Ordering Physician: Narda Garcia Date of Service: 09/23/25 Procedure(s): US renal BI Accession Number(s): [id number] cc: Narda Garcia; Linda Vernon MD Reason for Exam: N20.0 - Calculus of kidney EXAMINATION: Renal ultrasound CLINICAL INFORMATION: Kidney stone. COMPARISON: Previous renal ultrasound most recent May [address] of the abdomen and pelvis November 2022 TECHNIQUE: Real-time imaging of the kidneys. FINDINGS: RIGHT KIDNEY: 9.8 x 4.3 x 4.5 cm (SAG x AP x TRV). The kidney is normal in size, contour, and echogenicity. Renal cortical thickness is normal. No calculi or focal parenchymal lesions. No hydronephrosis. LEFT KIDNEY: 9.5 x 5.2 x 4.5 cm (SAG x AP x TRV). The kidney is normal in size, contour, and echogenicity. Renal cortical thickness is normal. No calculi or focal parenchymal lesions. No hydronephrosis. US/US renal BI IMPRESSION: Unremarkable exam. No stone seen. Electronically signed by: Scarlet Bradley MD 09/23/2025 01:26 PM EST RP Dictated By: Scarlet Bradley MD Signed By: <Electronically signed by Scarlet Bradley MD in OV> 09/23/25 1326 DD/ 1310 TD/TT: 09/23/25 1319 [employer] Text[employer] Supervisor: AARON [facility] External Provider IMG US PROCEDURES Final Result * HM PAP/HPV (06/18/2024 12:00 AM EDT) Pap Smear 1. NILM 1. NILM HPV Not Detected Undetected, Indeterminat e, Quantitative , Not Detected Narrative Sarah Gregg - 06/18/2024 12:00 AM EDT Pap completed in care everywhere under labs 06/23/2024 Historical Provider HEALTH MAINTENANCE Edited Result - Final * Hepatitis C Antibody with Reflex to HCV, RNA, Quantitative, Real-Time PCR (01/14/2024 11:14 AM EDT) Hepatitis C Antibody Nonreactive Nonreactive [facility] Comment:Antibodies to HCV no t detected; does not exclude early acuteHCV infection. Blood Venous blood specimen / Unknown 01/14/2024 11:14 AM EDT 01/14/2024 2:07 PM EDT Linda Vernon MD LAB BLOOD ORDERABLES Final Resul t [facility] [address] [place] [address] [phone] from Last 3 Months or Most Recently Relevant to Health Maintenance Insurance [employer] Care Teams Transit Survey Worker Relationship Specialty Start Date End Date Benny Kilgore MD [address] [place] [phone] PCP - General Internal Medicine 09/03/25
--- OUTSIDE RECORDS SUMMARY | 2025-09-24 00:54 | XMS_ITS | Encounter Summary ---
Author Organization [facility] Address [address] [place] [phone] Phone Care Team Providers Care Manager Sas Name Role Phone Swetha Sprague MD Primary Care Provider Encounter Details Date Type Department Care Team (Late st Contact Info) Description 03/04/2010 Documentation EM Family Medicine [address] [place] [address] Family Medicine, Physician [address] [place], [place] [id number] Social History Tobacco Use Types Packs/Day Years Used Date Smoking Tobacco: Never Assessed Comments Unknown Sex and Gender Information Value Date Recorded Sex Assigned at Not on file Legal Sex Female 4:51 PM EDT Gender Identity Not on file Sexual Orientation Not on file documented as of this encounter Plan of Treatment Not on file documented as of this encounter Visit Diagnoses Not on filedocumented in this encounter Care Teams Manager Sas Relationship Specialty Start Date End Date Swetha Sprague MD [address] [place] [phone] PCP - General 06/15/17 04/12/23 documented as of this encounter
--- OUTSIDE RECORDS SUMMARY | 2025-09-24 00:55 | XMS_ITS | Encounter Summary ---
Author Organization [email or web address] Address [address] [facility] [address] 7[address] [place] [address] Care Team Providers Care Manager Style Name Role Phone Benny Kilgore MD Primary Care Prov ider Encounter Details Date Type Department Care Team (Late st Contact Info) Description 09/23/2025 Orders Only [facility] External Provider, [facility] Social History Tobacco Use Types Packs/Day Years [...] your housing situation today? I have penny donna 12/01/[address] you li [...] on file documented as of this encounter Procedures Procedure Name Priority Date/Time Associated Diagnosis Comments US RENAL COMPLETE Routine 09/23/2025 1:1 0 PM EST documented in this encounter Results * US Renal Complete (09/23/2025 1:10 PM EST) Anatomical Region Laterality Modality Kidney Ultrasound 09/23/2025 1:10 PM EST Narrative 09/23/2025 1:29 PM EST [facility] [address] [place] [address] [place] [address] Ultrasound Report Signed Patient: Alesia Shirley MR#: [id number] : 1995 Acct:[id number] Age/Sex: 30 / F ADM Date: 09/23/25 Loc: HO.HMGCX Attending Dr: Narda TELLES Ordering Physician: Narda Garcia Date of Service: 09/23/25 Procedure(s): US renal BI Accession Number(s): [id number] cc: Narda Garcia; Linda Vernon MD Reason [...] Scarlet Bradley MD 09/23/2025 01:26 PM EST Dictated By: Scarlet Bradley MD Signed By: <Electronically signed by Scarlet Bradley MD in OV> 09/23/25 1326 DD/ 1310 TD/TT: 09/23/25 1319 Radiology Scheduler: AARON Procedure Note Donotuseinterpreter, Image - 09/23/2025 [facility] Primary Care [facility] [place] [address] Ultrasound Report Signed Patient: Alesia Shirley#: [id number] : 1995Acct:[id number] Age/Sex: 30 / FADM Date: 09/23/25 Loc: HO.HMGCX Attending Dr: Narda TELLES Ordering Physician: Narda Garcia Date of Service: 09/23/25 Procedure(s): US renal BI Accession Number(s): [id number] cc: Narda Garcia; Linda Vernon MD Reason [...] Scarlet Bradley MD 09/23/2025 01:26 PM EST Dictated By: Scarlet Bradley MD Signed By: <Electronically signed by Scarlet Bradley MD in OV> 09/23/25 1326 DD/ 1310 TD/TT: 09/23/25 1319 Radiology Scheduler: AARON [facility] External Provider IMG US PROCEDURES Final Result documented in this encounter Visit Diagnoses Not on filedocumented in this encounter Additional Health Concerns Assessment Noted Time PHQ-9 Depression Total Score: 17 07/ 025 3:33 PM EDT documented as of this encounter Care Teams Manager Style Relationship Specialty Start Date End Date Benny Kilgore MD [address] [place] [address] PCP - General Internal Medicine 09/03/25 documented as of this encounter
--- OUTSIDE RECORDS SUMMARY | 2025-09-24 00:55 | XMS_ITS | Encounter Summary ---
Author Organization [employer] Address [address] [facility] 7t [place] [address] Care Team Providers Care Preanalytics Team Lead Name Role Phone Linda Vernon MD Primary Care Provider [phone] WinterBenny Pope MD Primary Care Prov ider Encounter Details Date Type Department Care Team (Late st Contact Info) Description 01/30/2024 Orders Only [facility] [address] [place], [place] [phone] Linda Vernon MD [address] [place] [address] Social History Tobacco Use Types Packs/Day Years [...] documented as of this encounter Care Teams Preanalytics Team Lead Relationship Specialty Start Date End Date Linda Vernon MD [address] [place] [address] PCP - General Family Medicine 08/10/15 09/02/25 Benny Kilgore MD [address] [place] [phone] PCP - General Internal Medicine 09/03/25 documented as of this encounter
--- OUTSIDE RECORDS SUMMARY | 2025-09-24 00:55 | XMS_ITS | Encounter Summary ---
Author Organization [employer] Address [address] [facility] [address] [place] [address] Care Team Providers Care Roustabout Crew Pusher Name Role Phone Linda Vernon MD Primary Care Provider [phone] Bneny Kilgore MD Primary Care Prov ider Reason for Visit * Reason Comments Med Refill Encounter Details Date Type Department Care Team ([facility] st Contact Info) Description 02/23/2025 [facility]ill [facility] [address] [place], [place] [phone] Linda Vernon MD [address] [place] [address] Social History Tobacco Use Types Packs/Day Years [...] documented as of this encounter Care Teams Roustabout Crew Pusher Relationship Specialty Start Date End Date Linda Vernon MD [address] [place] [phone] PCP - General Family Medicine 08/10/15 09/02/25 Benny Kilgore MD [address] [place] [address] PCP - General Internal Medicine 09/03/25 documented as of this encounter
--- OUTSIDE RECORDS SUMMARY | 2025-09-24 00:55 | XMS_ITS | Clinical Summary ---
Author Organization [facility] Address [address] [address] Phone Care Team Providers Care Zipper Sewing Machine Operator Name Role Phone Linda Vernon MD Primary Care Provider [phone] Allergies No known active allergies Medications acetaminophen (TYLENOL) 500 MG tablet Take 500 mg by mouth as needed. Active omeprazole (PRILOSEC) 20 MG capsule Take 20 mg by mouth daily. 04/12/2022 Active cetirizine (ZYRTEC) 10 MG tablet Take 10 mg by mouth every morning. 10/15/2024 Active busPIRone (BUSPAR) 5 MG tablet Take 5 mg by mouth 3 (three) times a day. 08/19/2025 Active QUEtiapine (SEROQUEL) 100 MG tablet Take 100 mg by mouth nightly at bedtime. Active tamsulosin (FLOMAX) 0.4 mg Cap Take 0.4 mg by mouth nightly at bedtime. 06/26/2025 Active drospirenone (SLYND) 4 mg tabletIndicatio ns:PMDD (premenstrual dysphoric disorder) Take 1 tablet (4 mg total) by mouth daily. 84 tablet 3 09/08/2025 Active Active Problems Problem Noted Date Diagnosed Date PMDD (premenstrual dysphoric disorder) Assessment & Plan (09/08/2025 5:10 PM EST): She has an appointment with her psychiatrist within the next couple weeks. I encouraged her to talk to her psychiatrist about potentially changing her medications around see if this would make a difference in her symptoms as she has not noticed any improvement thus far. Of note, she has a history of serotonin syndrome so I think it is important that her psychiatrist ways in on other treatment options. I did explain that ovulatory suppression can work well for treating PMDD but she is not a good candidate for anything with estrogen and given her history of migraines with aura and progestin only methods of contraception are not as effective at preventing ovulation. However, there is a high rate of ovulatory suppression with drospirenone then with norethindrone so a trial of Slynd may be reasonable. Assessment & Plan (08/25/2025 9:34 AM EDT): Assessment & Plan Suspected premenstrual dysphoric disorder (PMDD) and premenstrual syndrome (PMS) Symptoms suggest PMDD, with severe anxiety, depression, irritability, and existential crises occurring post-ovulation and resolving with menstruation. She started Seroquel and buspirone one week ago. I explained that we typically would consider medication such as Zoloft to help treat symptoms consistent with PMDD. However, I explained that a type of mood stabilizer or antidepressant may help with the emotional symptoms that she is experiencing as well. I did explain that she needs to give it a good 2 to 3 months to see if will have any effect on her symptoms. Unfortunately, she is not a good candidate for a combined oral contraceptive secondary to history of migraines with aura. I explained that ovulatory suppression is often successful in treating symptoms associated with PMDD as well. If her current psychiatric medications do not help, we may need to consider other forms of ovulatory suppression. Vaginal irritation 06/23/2024 Assessment & Plan (06/23/2024 11:54 AM EDT): Nuab, GC/CT collected, will follow up and treat as indicated PCOS (polycystic ovarian syndrome) 05/10/2022 Overview (05/10/2022): Based on classic ovarian appearance on US as well as hirsutism and oligomenorrhea. Assessment & Plan (07/24/2022 3:23 PM EDT): We reviewed sorter operator history, recent SHG results and likely PCOS. We discussed likely little uterine lining build up at this point but need for plan for ongoing treatment if regular menses do not resume to protect endometrium. We reviewed options of POPs (has migraine with aura), Mirena, or Prometrium after 3 months without menses (and need for condoms to prevent prn). She opts for Prometrium at this time and would like to start this now as she hopes for at least a light menses for her own emotional well being. Rx sent. Primary oligomenorrhea 05/10/2022 Overview (05/10/2022): Likely secondary to PCOS but also concern for Asherman's s/p second trimester D and E History of loss 04/10/2021 Overview (04/10/2021): 11/2020-IUFD at 23+ weeks. D & E [facility] Assessment & Plan (04/10/2021 8:38 PM EDT): Discussed with patient recent loss. States she has good family support. Does feel she could benefit from additional bereavement support. [facility] brochure and book provided. Encourage patient to contact them. Acute vulvitis 04/06/2021 Assessment & Plan (04/10/2021 8:36 PM EDT): No evidence of vaginitis. Mild dryness of skin noted which is likely source of patient's itching/irritation. Have suggested 1% hydrocortisone if symptoms or lack of resolution. Resolved Problems Problem Noted Date Diagnosed Date Resolved Date Encounter for supervision of normal first in second trimester 08/19/2020 04/10/2021 Overview (10/26/2020): SYLVIA EVANS No OB-CMI score has been filled out for this encounter. Group PN care? * Rh * GC/Chlam * PAP Tdap * Flu * Hgb * GTT * 28 wk Repeat RPR * GBS * PPBC * screening * RUBELLA EQUIVOCAL Assessment & Plan (10/21/2020 3:05 PM EST): Overall, she is doing well. She is starting to feel movement. AFP today. Assessment & Plan (08/19/2020 2:42 PM EDT): By her reports, she is 10 weeks and 4 days. She is transferring her care from [place]. We have absolutely no records from [place]. She did sign a record release at the health center there a week or 2 ago but they have not for the records. I request that she sign a record release here so we can see what labs they have done. She is sure that they told her her due date of March 13 which is based on ultrasound. I reviewed the basic routine care with the patient and also offer her aneuploidy screening via NT screening. She is interested in pursuing this. Therefore, that has been ordered. Hopefully, we will have her records from [place] prior to the NT screening so we can add what ever labs need to still be done. Encounters Date Type Department Care Team Description 09/08/2025 11:00 AM EST Office Visit [facility] [address] [place] [address] [place] [address] Chance Qureshi MD PMDD (premenstrual dysphoric disorder) (Primary Dx) 09/02/2025 Telephone [facility] [address] [place] [address] [place] [address] Sujata Gotti RN PMDD 08/25/2025 9:20 AM EDT Office Visit [facility] [address] [place] [address] [place] [address] Chance Qureshi MD PMDD (premenstrual dysphoric disorder) (Primary Dx) from Last 3 Months Immunizations Immunization Administration Dates Next Due COVID-19 (Pre-08/27) Amena Vaccine, [id number], PF 02/13/2021 DTP 01/02/1995, 4,1993,09/04 DTaP-IPV 04/26/1998, 5,01/02/1994,11/04,1993 Dtap, 5 Pertussis Antigens 04/26/1998 [id number] FORMULATION 09/29/2009 HPV,quadrivalent 09/28/2008,01/17/2008, 7 Hepatitis B 01/02/1994,1993,1993 Hib, unspecified formulation 10/18/2007 Hib,PRP-T 10/04/1994, 4,1993,09/04 INFLUENZA, SPLIT VIRUS, TRIV ALENT W/ PRESERVATIVE IM 10/18/2009,09/28/2008 IPV 01/02/1994,1993,1993 MMR 04/26/1998,07/05/1994 Meningococcal MCV4P 10/18/2007 Polio - OPV 04/26/1998 Td (adult),2 Lf Tetanus Toxo id, PF, Adsorbed 05/16/2005 Tdap 10/18/2007 Varicella 09/28/2008,06/30/1998 Family History Medical History Relation Comments Asthma Brother No Known Problems Father No Known Problems Mother Diabetes Paternal Grandmother Relation Status Comments Brother Alive Father Alive Mother Alive Paternal Grandmother Alive Sister Alive Social History Tobacco Use Types Packs/Day Years Used Date Smoking Tobacco: Never Smokeless Tobacco: Never Alcohol Use Standard Drinks/Week Comments Not Currently 0 (1 standard drink = 0.6 oz pur e alcohol) Education Answer Date Recorded Are you interested in more education? Not on jaspreet e 03/02/2023 Are you concerned about learning? Not on file 03/02/2023 No 03/02/2023 No 03/02/2023 Digital Access Answer Date Recorded No 04/03/2023 No 04/03/2023 Reliable internet access at home? Not on file 04/03/2023 Device with a working camera? Not on file Comments No Sex and Gender Information Value Date Recorded Sex Assigned at Not on file Legal Sex Female 10:34 AM EDT Gender Identity Not on file Sexual Orientation Not on file Last Filed Vital Signs Vital Sign Reading Time Taken Comments Blood Pressure 100/52 09/08/2025 11:08 AM EST Pulse 62 10/24/2021 1:33 PM EST Temperature 37.1 C (98.7 F) 10/24/2021 1:33 PM EST Respiratory Rate 16 10/24/2021 1:33 PM EST Oxygen Saturation 97% 10/24/2021 1:33 PM EST Inhaled Oxygen Concentration - - Weight 72 kg (158 lb 12.8 oz) 09/08/2025 11:08 A M EST Height 160 cm (5' 2.99 ) 09/08/2025 11:08 AM EST Body Mass Index 28.14 09/08/2025 11:08 AM EST Plan of Treatment Health Maintenance Due Date Last Done Comments DEPRESSION SCREENING 2005 INFLUENZA VACCINE (#1) 2025 9, 09/29/2009, 09/28/2008 COVID-19 VACCINE ( season) 2025 02/13/2021 PAP SMEAR 06/23/2027 06/23/2024, 06/07/2021 Adult Td,Tdap Booster 01/13/2034 01/14/2024 , 10/18/2007, 05/16/2005 IPV VACCINES Completed 04/26/1998, 04/06, 01/02/1995, Additional history exists HIB VACCINES Completed 10/18/2007, 09/07, 01/02/1994, Additional history exists MENINGOCOCCAL VACCINES (ACWY) Aged Out 10/18/2007 No longer eligible based on patient's age to complete this topic HEPATITIS C SCREENING Completed 10/21/2020 HIV ONE-TIME SCREENING (18-65 YEARS) Completed 10/21/2020 SMOKING STATUS SCREENING (Once After 26 Yrs) Completed 09/08/2025 HEPATITIS A VACCINES Aged Out No long er eligible based on patient's age to complete this topic MENINGOCOCCAL VACCINES (B) Aged Out N o longer eligible based on patient's age to complete this topic PNEUMOCOCCAL VACCINES (0-49 years) Aged Out No longer eligible based on patient's age to complete this topic Medical Devices Not on file Procedures Procedure Name Priority Date/Time Associated Diagnosis Comments PAP TEST Routine 06/23/2024 12:00 AM EDT HEPATITIS B SURFACE ANTIGEN Routine 10/21/2020 3:18 PM EST Encounter for care in second trimester of first from Last 3 Months or Most Recently Relevant to Health Maintenance Results * Pap Test (06/23/2024 12:00 AM EDT) Report [address] [address] Dress Shoe Inspector: Elise Rose MD TRANSMISSIONS SYSTEMS OPERATOR Cytology Report FINAL DIAGNOSIS A. PAP SMEAR (THIN PREP) CE: SPECIMEN ADEQUACY: Satisfactory for evaluation; transformation zone present. INTERPRETATION: NEGATIVE FOR INTRAEPITHELIAL LESION OR MALIGNANCY. Coccobacilli consistent with shift in mauricio This specimen was analyzed by the automated ThinPrep Imaging System ([facility] and the selected blank were reviewed by a relocation director. Electronically Signed Out By: RAVI Frost(ASCP) The Pap test is a screening test primarily for squamous cancers and precursors and has associated false-negative and false-positive results. New technologies such as liquid-based preparations may decrease but will not eliminate all false-negative results. Regular sampling and follow-up of unexplained clinical signs and symptoms are recommended to minimize false negative results. PROCEDURES/ADDENDA HPV Testing (Requested) Ordered Date: 06/24/2024 A. PAP SMEAR (THIN PREP) CE: Human Papilloma Virus Test NEGATIVE for high-risk Human Papilloma Virus types 16, 18, 45 and the Other high risk probe set (Includes 31, 33, 35, 39, 51, 52, 56, 58, 59, 66, 68) Note: Testing performed by [facility] On[facility] HR-HPV analysis. Clinical correlation is advised. This HPV test was performed at [facility], [address] [place] [address]. This test has been FDA approved for both SurePath and ThinPrep cervical cytology specimens. The accuracy and precision of this test for all other specimen sources has been verified in the Cytopathology Laboratory of the [facility] and has not been cleared or approved by the U.S. Food and Drug Administration. Clinical correlation is advised. CLINICAL HISTORY Date of Last Menstrual Period: 06-12-2024 Other Clinical Conditions: Screening Pap SPECIMEN SOURCE A: PAP SMEAR (THIN PREP) CE Patient Name: MAICO SHIRLEY : 1995 (Age: 29) Sex: F Institution: [facility] Location: [facility] Date of Collection: 06/23/2024 Date of Reported: 06/26/2024 13:26 Results to: Vikki Alonso [facility] Final Diagnosis A. PAP SMEAR (THIN PREP) CE: SPECIMEN ADEQUACY: Satisfactory for evaluation; transformation zone present. INTERPRETATION: NEGATIVE FOR INTRAEPITHELIAL LESION OR MALIGNANCY. Coccobacilli consistent with shift in mauricio This specimen was analyzed by the automated ThinPrep Imaging System ([facility] and the selected blank were reviewed by a relocation director. [facility] Results\Inter pretation A. PAP SMEAR (THIN PREP) CE: Human Papilloma Virus TestNEGATIVE for high-risk Human Papilloma Virus types 16, 18, 45 and the Other high risk probe set (Includes 31, 33, 35, 39, 51, 52, 56, 58, 59, 66, 68)Note: Testing performed by [facility] Onclarigant[facility] HR-HPV analysis. Clinical correlation is advised. This HPV test was performed at [facility], [address] [place] [address]. This test has been FDA approved for both SurePath and ThinPrep cervical cytology specimens. The accuracy and precision of this test for all other specimen sources has been verified in the Cytopathology Laboratory of the [facility] and has not been cleared or approved by the U.S. Food and Drug Administration. Clinical correlation is advised. [facility] Conversion Type (Conversion Source) 06/23/2024 06/24/2024 9:35 AM EDT Vikki Holbrook MD CYTOLOGY ORDER DREW Edited Result - Final [address] [address] * Hepatitis B surface antigen (10/21/2020 3:18 PM EST) HBV SURFACE ANTIGEN NON-REACTI VE NON-REACTI VE [facility] Blood 10/21/2020 3:18 PM EST 10/21/2020 3:27 PM EST us David Renteria MD LAB BLOOD BKR ORDERABLES Final R esult [address] [address] from Last 3 Months or Most Recently Relevant to Health Maintenance Insurance [employer] [facility] [employer] [facility] [employer] ACO Care Teams Zipper Sewing Machine Operator Relationship Specialty Start Date End Date Linda Vernon MD [address] [place] [id number] PCP - General Family Medicine 10/24/21 Additional Source Comments The information contained in this document represents components of the legal health record. It is not the complete legal health record.[facility]
--- OUTSIDE RECORDS SUMMARY | 2025-09-24 00:55 | XMS_ITS | Encounter Summary ---
Author Organization [employer] Address [address] [place] [address] Care Team Providers Care Field Test Engineer Name Role Phone Linda Vernon MD Primary Care Provider [phone] Benny Kilgore MD Primary Care Prov ider Encounter Details Date Type Department Care Team (Late st Contact Info) Description 02/05/2025 Orders Only [facility]EDS [address] [place] [address] Sarah Gregg Social History Tobacco Use Types Packs/Day Years [...] Procedure Name Priority Date/Time Associated Diagnosis Comments PAP/HPV Routine 06/18/2024 12:00 AM EDT documented in this encounter Results * HM PAP/HPV (06/18/2024 12:00 AM EDT) Pap Smear 1. NILM 1. NILM HPV Not Detected Undetected, Indeterminat e, Quantitative , Not Detected Narrative Sarah Gregg - 06/18/2024 12:00 AM EDT Pap completed in care everywhere under labs 06/23/2024 us Historical Provider HEALTH MAINTENANCE Edited Result - Final documented in this encounter Visit Diagnoses Not on filedocumented in this encounter Additional Health Concerns Assessment Noted Time PHQ-9 Depression Total Score: 16 025 10:05 AM EST documented as of this encounter Care Teams Field Test Engineer Relationship Specialty Start Date End Date Linda Vernon MD [address] [place] [address] PCP - General Family Medicine 08/10/15 09/02/25 Benny Kilgore MD [address] [place] [address] PCP - General Internal Medicine 09/03/25 documented as of this encounter
--- OUTSIDE RECORDS SUMMARY | 2025-09-24 00:55 | XMS_ITS | Encounter Summary ---
Author Organization [employer] Address [address] [place] [address] Care Team Providers Care Cutting Torch Operator Name Role Phone Linda Vernon MD Primary Care Provider [phone] Benny Kilgore MD Primary Care Prov ider Reason for Visit * Reason Onset Date Comments Med Refill 01/28/2024 Encounter Details Date Type Department Care Team (Late st Contact Info) Description 01/28/2024 Telephone [facility] MEDICINE [address] [place] [address] Linda Vernon MD [address] [place], [place] [id number] Med Refill Social History Tobacco Use Types [...] Patient states that she was seen in [facility] on 01/23/24 and prescribed Ativan, which helped with the tremors. She has now run out. Patient agreeable to come to [facility] for SDC appointment tomorrow, 01/30/24. Scheduled for 2:20pm. Advised that she can also seek eval and care in [place] this evening if needed, and if so, SDC appointment for tomorrow can be canceled. Patient expressed understanding of all, denies emergent/urgent needs/symptoms and understand to go to WIC/ED if symptoms worsen. Routing to PCP so she is aware. Tc from pt requesting Ativan, stating it was prescribed by ER for muscle tremor and she feels it has been working well for her. If any questions please contact pt at [phone]. * Telephone Encounter - Alejandro Shirley - 01/28/2024 2:08 PM EDT Tc from pt requesting Ativan, stating it was prescribed by ER for muscle tremor and she feels it has been working well for her. If any questions please contact pt at [phone]. documented in this encounter Plan of Treatment Not on file documented as of this encounter Visit Diagnoses Not on filedocumented in this encounter Additional Health Concerns Assessment Noted Time PHQ-9 Depression Total Score: 26 024 12:26 PM EDT documented as of this encounter Care Teams Cutting Torch Operator Relationship Specialty Start Date End Date Linda Vernon MD [address] [place] [id number] PCP - General Family Medicine 08/10/15 09/02/25 Benny Kilgore MD [address] [place] [id number] PCP - General Internal Medicine 09/03/25 documented as of this encounter
--- OUTSIDE RECORDS SUMMARY | 2025-09-24 00:55 | XMS_ITS | Encounter Summary ---
Author Organization [employer] Address [address] [place] [address] Care Team Providers Care Installer Molding And Trim Name Role Phone Linda Vernon MD Primary Care Provider [phone] Benny Kilgore MD Primary Care Prov ider Reason for Visit * Reason Onset Date Comments Letter for School/Work 01/18/2024 Encounter Details Date Type Department Care Team ([facility] st Contact Info) Description 01/18/2024 Telephone [facility] MED [facility] PEDS [address] [place], [place] [phone] Linda Vernon MD [address] [place], [place] [phone] Letter for School/Work Social History Tobacco Use [...] Miscellaneous Notes * Telephone Encounter - Roberta Benitez - 01/18/2024 10:18 AM EDT Gumaro Carmona with [employer] requesting a call from a nurse to confirm a letter excusing the patient from work from the 05 of January until May 042023. Scaler does not see this letter generated in chart. Please contact Kiesha @ [phone] documented in this encounter Plan of Treatment Not on file documented as of this encounter Visit Diagnoses Not on filedocumented in this encounter Additional Health Concerns Assessment Noted Time PHQ-9 Depression Total Score: 26 024 12:26 PM EDT documented as of this encounter Care Teams Installer Molding And Trim Relationship Specialty Start Date End Date Linda Vernon MD [address] [place] [id number] PCP - General Family Medicine 08/10/15 09/02/25 Benny Kilgore MD [address] [place] [address] PCP - General Internal Medicine 09/03/25 documented as of this encounter
== END 2025-09-23 13:03 | disposition home or self-care (01) ==
LOC: HO.HMGCX 13:02
PROVIDERS: PCP Student in an Organized Health Care Education/Training Program; Visit Provider Nurse Practitioner Family
DX: N20.0 Calculus of kidney (principal)
CPT/HCPCS: 76775

== ENCOUNTER → 2025-09-23 13:07 | Outpatient (BNV) | payer MEDICAID, SELFPAY | PROVIDERS: PCP Student in an Organized Health Care Education/Training Program; Visit Provider Radiology Diagnostic Radiology | DX: N20.0 Calculus of kidney (principal) | CPT/HCPCS: 76775 ==